=== PATIENT | male | born 1940 | race Caucasian/White ===

== ENCOUNTER → 2023-09-21 09:49 | Outpatient (REF) | payer MEDICARE, OTHER, SELFPAY ==
[2023-09-21 11:56] LABS: % Basophils 0.4 % (0-2); % Eosinophils 2.1 % (0-6); % Immature Granulocytes 0.4 % (0-0.5); % Monocytes 10.9 % (1.7-9.3); % Neutrophils 57.2 % (42.2-75.2); Absolute Eosinophils 0.1 10^3/uL (0-0.7); Absolute Lymphocytes 1.5 10^3/uL (1.2-3.4); Absolute Monocytes 0.6 10^3/uL (0.1-0.6); Hematocrit 40.2 % (39.0-52.0); Hemoglobin 13.5 g/dL (13.0-18.0); Mean Corp Hgb Conc. 33.6 g/dL (33.0-37.0); Mean Corpuscular Hgb 31.8 pg (27.0-31.0); Mean Corpuscular Volume 94.6 fL (80.0-94.0); Mean Platelet Volume 10.5 fL (7.4-10.4); Nucleated Red Blood Cells % 0 % (-); Platelet Count 243 10^3/uL (130-400); Red Blood Cell Count 4.25 10^6/uL (4.70-6.10); Red Cell Dist. Width 13.7 % (11.5-14.5); White Blood Cell Count 5.2 10^3/uL (4.8-10.8)
[2023-09-21 11:58] LABS: ALT (SGPT) 18 U/L (0-50); AST (SGOT) 37 U/L (17-59); Albumin 4.1 g/dl (3.5-5.0); Alkaline Phosphatase 96 U/L (38-126); Blood Urea Nitrogen 17 mg/dl (9-20); Carbon Dioxide 31 mmol/L (22-30); Chloride 104 mmol/L (98-107); Glucose 89 mg/dl (70-99); Potassium 4.2 mmol/L (3.5-5.1); Sodium 139 mmol/L (135-145); Total Bilirubin 0.7 mg/dl (0.2-1.3); Total Protein 6.6 g/dl (6.3-8.2); eGFR > 60.00
== END ==
LOC: HWLAB 09:49
PROVIDERS: ATTENDING PHYSICIAN Psychiatry & Neurology Neurology; FAMILY PHYSICIAN Family Medicine
DX: G20.C Parkinsonism, unspecified (principal)
CPT/HCPCS: 36415; 80053; 85025

== ENCOUNTER → 2024-06-13 10:57 | Outpatient (REF) | payer MEDICARE, OTHER, SELFPAY ==
[2024-06-13 16:11] LABS: % Basophils 0.6 % (0-2); % Immature Granulocytes 0.2 % (0-0.5); % Neutrophils 46.2 % (42.2-75.2); Absolute Eosinophils 0.2 10^3/uL (0-0.7); Absolute Monocytes 0.6 10^3/uL (0.1-0.6); Absolute Neutrophils 2.4 10^3/uL (1.4-6.5); Hematocrit 40.3 % (39.0-52.0); Hemoglobin 13.9 g/dL (13.0-18.0); Mean Corp Hgb Conc. 34.5 g/dL (33.0-37.0); Mean Corpuscular Hgb 31.5 pg (27.0-31.0); Mean Corpuscular Volume 91.4 fL (80.0-94.0); Mean Platelet Volume 11.3 fL (7.4-10.4); Nucleated Red Blood Cells % 0 % (-); Platelet Count 223 10^3/uL (130-400); Red Blood Cell Count 4.41 10^6/uL (4.70-6.10); Red Cell Dist. Width 13.3 % (11.5-14.5); White Blood Cell Count 5.1 10^3/uL (4.8-10.8)
[2024-06-13 16:18] LABS: ALT (SGPT) 14 U/L (0-50); AST (SGOT) 45 U/L (17-59); Albumin 4.6 g/dl (3.5-5.0); Alkaline Phosphatase 69 U/L (38-126); Blood Urea Nitrogen 19 mg/dl (9-20); Calcium 9.3 mg/dl (8.4-10.2); Carbon Dioxide 28 mmol/L (22-30); Chloride 102 mmol/L (98-107); Glucose 94 mg/dl (70-99); HDL Cholesterol 63 mg/dl; LDL Cholesterol, Calculated 66 mg/dl; Potassium 4.5 mmol/L (3.5-5.1); Sodium 143 mmol/L (135-145); Total Bilirubin 0.8 mg/dl (0.2-1.3); Total Cholesterol 145 mg/dl (50-199); Total Protein 7.1 g/dl (6.3-8.2); Triglyceride 81 mg/dl (10-149); Very Low Density Lipoprotein 16 mg/dl (0-30); eGFR > 60.00
== END ==
LOC: HWLAB 10:57
PROVIDERS: ATTENDING PHYSICIAN Family Medicine
DX: N32.81 Overactive bladder (principal); E78.5 Hyperlipidemia, unspecified; H35.30 Unspecified macular degeneration; N40.1 Benign prostatic hyperplasia with lower urinary tract symptoms; G20.B1 Parkinson's disease with dyskinesia, without mention of fluctuations; Z96.651 Presence of right artificial knee joint
CPT/HCPCS: 36415; 80053; 80061; 85025

== ENCOUNTER 2024-11-03 09:53 | Inpatient (IN) | payer MEDICARE, OTHER, SELFPAY ==
[2024-11-03] VITALS (16 sets, daily range): BP systolic 112–150; BP diastolic 48–96; BMI 32.9
[2024-11-03 03:29] LABS: % Basophils 0.5 % (0-2); % Eosinophils 0.6 % (0-6); % Immature Granulocytes 0.2 % (0-0.5); % Lymphocytes 17.6 % (20.5-51.1); % Monocytes 14.2 % (1.7-9.3); % Neutrophils 66.9 % (42.2-75.2); Absolute Lymphocytes 1.1 10^3/uL (1.2-3.4); Absolute Monocytes 0.9 10^3/uL (0.1-0.6); Absolute Neutrophils 4.3 10^3/uL (1.4-6.5); Hematocrit 40.5 % (39.0-52.0); Hemoglobin 13.9 g/dL (13.0-18.0); Mean Corp Hgb Conc. 34.3 g/dL (33.0-37.0); Mean Corpuscular Hgb 31.9 pg (27.0-31.0); Mean Corpuscular Volume 92.9 fL (80.0-94.0); Mean Platelet Volume 11.2 fL (7.4-10.4); Nucleated Red Blood Cells % 0 % (-); Platelet Count 204 10^3/uL (130-400); Red Blood Cell Count 4.36 10^6/uL (4.70-6.10); Red Cell Dist. Width 13.8 % (11.5-14.5); White Blood Cell Count 6.4 10^3/uL (4.8-10.8)
[2024-11-03 03:51] LABS: ALT (SGPT) 37 U/L (0-50); AST (SGOT) 39 U/L (17-59); Albumin 4.4 g/dl (3.5-5.0); Alkaline Phosphatase 119 U/L (38-126); Blood Urea Nitrogen 22 mg/dl (9-20); Calcium 9.4 mg/dl (8.4-10.2); Carbon Dioxide 25 mmol/L (22-30); Chloride 108 mmol/L (98-107); Estimated Creatinine Clearance 69 ml/min; Glucose 120 mg/dl (70-99); Potassium 4.5 mmol/L (3.5-5.1); Sodium 143 mmol/L (135-145); Total Bilirubin 0.6 mg/dl (0.2-1.3); Total Protein 6.8 g/dl (6.3-8.2); Troponin I 0.032 ng/ml; eGFR > 60.00
--- NOTE | 2024-11-03 03:51 | ED.GENMED ---
History of Present Illness
General
Chief Complaint: Weakness
Source: patient, spouse and ambulance crew
Exam Limitations: none
Time Seen by Provider: 11/03/24 03:27
Nursing documentation reviewed up to this point in time: agreed with
History of Present Illness
History of Present Illness:
84-year-old male with a past medical history of hyperlipidemia, BPH, mild dementia, Parkinson's disease who presents to the emergency room from his home at [facility] where he lives with his ; he presents with his via EMS for evaluation
of weakness and multiple falls. Patient's reports that he has had 'decreased stamina' for the past few weeks. Today they were able to go to dinner he seemed generally normal but when they returned from dinner and in the evening he was very
weak and had 3 falls in short order. After the third time calling medics for lift assist they were recommended to go to the hospital to be evaluated. Patient is unsure whether he struck his head but does have abrasion to the left frontal region.
Denies loss of consciousness. He denies any injuries from the falls�denies headache, neck pain, back pain, chest pain, abdominal pain, pain in the extremities. Review of medication list shows that he is not on any blood thinners. says that
he was mildly sweaty when the medics came to pick him up the third time but otherwise she did not notice any additional symptoms. He has not had any cough or URI symptoms. No vomiting or diarrhea. He does wear a diaper for incontinence.
Review of Systems
Review of Systems
All Other Systems: ROS reviewed and negative except as documented in HPI and ROS
Constitutional: Reports fatigue; Denies fever or chills
Respiratory: Denies trouble breathing
Cardiac: Denies chest pain
ABD/GI: Denies abdominal pain, nausea or vomiting
: Denies flank pain
Musculoskeletal: Denies joint pain, edema, neck pain or back pain
Neurological: Reports weakness (Generalized); Denies dizzy, headache or numbness
Phy Exam
Physical Exam
Physical Exam:
General: Awake, alert, oriented x3; no acute distress
Head: Normocephalic, frontal scalp abrasion
Eyes: Conjunctiva normal, EOMI, pupils equal round and reactive to light bilaterally
Throat: Airway intact, handling secretions
Neck: Trachea midline, no cervical spine tenderness
Lungs: Clear to auscultation bilaterally, no wheezing, rales, rhonchi
Heart: Bradycardia with regular rhythm, no murmurs, gallops, or rubs; no chest wall tenderness
Abd: Soft, non distended, nontender
Back: No signs of trauma to the back or flank and no tenderness in the thoracic or lumbar spine
Neuro: Cranial nerves grossly intact, moving all extremities equally without focal motor or sensory deficit
Skin: Warm and dry, no lacerations or abrasion
Extremities: Atraumatic, no reproducible tenderness, reasonable range of motion in all extremities without pain, good pulses in all extremities
Scores
Heart Failure Risk
Heart Failure Risk Score: Not Applicable
Heart Score for Chest Pain Patients
STEMI patient?: Not applicable
Withdrawal Assessment of Alcohol
Withdrawal Assessment Completed?: Not applicable
Course
Orders/Labs/Results
Orders:
Orders
11/03/24 03:04
EKG [Electrocardiogram (*1)] Urgent
Reason for Study: Fatigue / Weakness
11/03/24 03:05
EKG- Treatment ONCE
11/03/24 03:18
Electrocardiogram (*1) Urgent
Reason for Study: Fatigue / Weakness
EKG- Treatment ONCE
11/03/24 03:20
Complete Blood Count/With Diff Urgent
Comprehensive Metabolic Panel Urgent
TSH Reflex To Free T4 Urgent
Troponin I Urgent
11/03/24 03:50
CT Cervical Spine W/o Iv Contr Urgent
Comment:
Reason For Exam: fall with headstrike
CT Head W/o Iv Contrast Urgent
Comment:
Reason For Exam: fall with headstrike
11/03/24 03:57
CR Chest - 2 Views Urgent
Comment:
Reason For Exam: weakness,eval for pna
11/03/24 04:02
COVID-19 Antigen Urgent
Source: Nasal Swab
Urinalysis Reflex To Culture Urgent
Date Specimen was Collected: 11/03/24
Time Specimen was Collected: 03:45
Urine Microscopic Reflex Cult Urgent
Influenza A+B Rapid Molecular Urgent
MARLENE Source: Nasal Swab
Specimen Description:
11/03/24 04:19
Electrocardiogram (*1) Urgent
Reason for Study: Fatigue / Weakness
EKG- Treatment ONCE
11/03/24 04:58
Case Management Consult ONCE
Case Management Consult: Prison Placement
Comment: rehab
Pt Eval And Treat Urgent
Activity Level: With Assistance
11/03/24 Breakfast
Regular
At Your Request: Non-Participating
11/03/24 06:18
Troponin I Urgent
11/03/24 09:18
Troponin I Urgent
Abnormal Lab Results
11/03/24 11/03/24 11/03/24
03:20 04:02 06:18
RBC 4.36 L 10^6/uL
(4.70-6.10)
MCH 31.9 H pg
(27.0-31.0)
MPV 11.2 H fL
(7.4-10.4)
Absolute Lymphs (auto) 1.1 L 10^3/uL
(1.2-3.4)
Absolute Monos (auto) 0.9 H 10^3/uL
(0.1-0.6)
Lymphocytes % 17.6 L %
(20.5-51.1)
Monocytes % 14.2 H %
(1.7-9.3)
Chloride 108 H mmol/L
(98-107)
BUN 22 H mg/dl
(9-20)
Glucose 120 H mg/dl
(70-99)
Troponin I 0.047 H* D ng/ml
Urine Bacteria (Reflex) Few A
(Negative)
Urine Albumin (Reflex) 2+ A
(Neg - Trace)
11/03/24 03:20
11/03/24 03:20
Vital Signs
Initial and Last Documented VS:
Initial Vital Signs
Temp Pulse Resp BP Pulse Ox
37.2 C 52 18 129/66 97
11/03/24 03:06 11/03/24 03:06 11/03/24 03:06 11/03/24 03:06 11/03/24 03:06
Last Documented Vital Signs
Temp Pulse Resp BP Pulse Ox
37.2 C 50 21 138/63 94
11/03/24 03:06 11/03/24 07:30 11/03/24 07:30 11/03/24 07:30 11/03/24 07:30
MDM/Problems Addressed
Differential Diagnosis Includes:
Anemia, infection, dysrhythmia, dehydration, electrolyte derangement, deconditioning related to Parkinson's/dementia
MDM/Problems Addressed:
84-year-old male with history as documented presents with his for evaluation of increasing weakness and multiple falls this evening. Bradycardic but otherwise normal vitals. Physical exam as above. Place an IV check labs including a CBC and
a CMP; check urinalysis. Swab for COVID and flu. Check chest x-ray for infectious workup. Check an EKG. did describe some diaphoresis will send a troponin. Monitor on telemetry reassess after the above.
Patient's EKG concerning for AV block. Add thyroid studies. He is not on beta-blockers. Possible bradycardia as cause for his increased weakness and falls. Continue to monitor closely on telemetry.
Labs reviewed: CBC unremarkable, CMP no clinically significant abnormalities. Troponin negative. Urinalysis no infection. Chest x-ray reviewed by me shows no acute disease. Patient is negative for COVID but influenza swab was positive which
likely accounts for his increased weakness today. Check repeat troponin for completeness after episode of diaphoresis today. Serial EKGs. Reassess.
Discussed EKG with cardiology�consistent with Evelina type I, can be followed outpatient.
I had a long discussion with patient and . At this point no clear indication for hospital admission with labs and vital signs, exam all relatively reassuring. He will need outpatient cardiology follow-up as above. Suspect his weakness is from
influenza. He is very unsteady on his feet here had difficulty walking even with a walker here. Spoke to patient and and they would feel more comfortable with him going to rehab rather than directly home to the apartment. Will monitor here
in the emergency room pending physical therapy evaluation and case management consultation for placement in rehab.
Repeat troponin reviewed it was slightly increased from prior but marginally so�very low clinical suspicion for ACS. He has no chest pain and did not have any chest pain. I do suspect influenza as cause for weakness. I did discuss with cardiology;
will check a third troponin�if flat will rule out ACS. Will still work towards placement.
Discussed with cardiology again on reassessment of EKG concern for 2-1 AV block and in context of uptrending troponin will plan to admit to hospitalist service. Cardiology to consult. Case discussed with hospitalist.
Chronic conditions affecting care:
Parkinson's
*Radiology
Radiology exam reviewed: preliminary read by ED provider and radiology read reviewed
*Pulse Oximetry
Patient hypoxic: no
*EKG
Interpreted by ED Provider?: Yes
Heart Rate: 47
Rate: bradycardiac
Rhythm: sinus
[place]: left axis deviation
Interval: second degree evelina Luther
QRS Pattern: other (LAFB)
Ischemia: non-specific ST changes
*Critical Care Note
Total Time (30-74mins, 75-104mins- exclusive of procedures): Not Applicable
Data Reviewed
Review of Other/Old Records Reveals: Labs and Records
Source: patient, spouse and ambulance crew
Patient Management
Discussion with other providers: Nailhead Setter (Discussed with cardiology)
ED Attending Note
-
Portions of this chart may have been created with voice recognition software.� Occasional wrong word or��sound alike� substitutions may have occurred due to the inherent limitations of voice recognition software.
Discharge Plan
Departure
Patient Disposition: Acute Rehab Facility
Date of Disposition: 11/03/24
Time of Disposition: 06:59
Patient with high blood pressure during this ER visit?: No
Discharge Problem:
Influenza, Mobitz (type) I (Wenckebach's) atrioventricular block
Instructions: Flu in adults - Discharge instructions
Prescriptions:
No Action
pyridoxine (vitamin B6) 100 mg Tablet
100 mg PO DAILY
folic acid 0.8 mg Capsule
0.8 mg PO HS
mecobalamin (vitamin B12) 5,000 mcg Tablet,Disintegrating
2,500 mcg PO QPM
ascorbic acid (vitamin C) [Vitamin C] 1,000 mg Tablet
1,000 mg PO DAILY
atorvastatin 20 mg Tablet
20 mg PO HS
multivitamin Tablet
1 tab PO DAILY
finasteride 5 mg Tablet
5 mg PO QPM
omega 9-yej-fzf-fish oil [Fish Oil] 1,000 mg (120 mg-180 mg) Capsule
2 cap PO DAILY
PreserVision AREDS-2 250-90-40-1 mg Capsule
1 tab PO BID
donepezil 10 mg Tablet
10 mg PO HS
carbidopa-levodopa 25-100 mg Tablet
3 tab PO TID
acetaminophen [Acetaminophen Extra Strength] 500 mg tablet
1,000 mg PO Q6H PRN (Reason: pain)
Rx Instructions:
DO NOT exceed >4000 mg daily.
docusate sodium 100 mg capsule
100 mg PO BID PRN (Reason: constipation)
Referrals:
Jay Jay Fulton MD [Active] - Call in 1-3 days for appt (Cardiology)
Interventions
Interventions:
*Risk Screen - Suicide Last Done: 11/03/24 03:06
*General Assessment Last Done: 11/03/24 03:06
*Neglect/Abuse Screening Last Done: 11/03/24 03:06
*ED- Fall Risk Assessment Last Done: 11/03/24 03:06
*ED COVID-19 Vaccine History Last Done: 11/03/24 03:06
ED- Cardiac Assessment Last Done: 11/03/24 07:21
ED- Neurological Assessment Last Done: 11/03/24 07:21
ED- Pulmonary Assessment Last Done: 11/03/24 07:21
Discharge Date and Time
Print Language: KYRGYZ
[2024-11-03 04:11] LABS: Urine Albumin 2+ (Neg - Trace); Urine Bilirubin Negative (Negative); Urine Character Clear (Clear); Urine Color Yellow; Urine Glucose Negative (Negative); Urine Ketone Negative (Negative); Urine Leukocyte Negative (Negative); Urine Nitrite Negative (Negative); Urine Occult Blood Negative (Negative); Urine Specific Gravity 1.015 (<1.030); Urine Urobilinogen Negative (Neg - 1+)
[2024-11-03 04:19] LABS: COVID-19 Antigen Negative (Negative)
[2024-11-03 04:37] LABS: Urine Bacteria Few (Negative); Urine Mucus Few; Urine Red Blood Cell 0-2 /HPF (0-2); Urine White Cell 0-2 /HPF (0-5)
[2024-11-03 05:15] LABS: TSH Reflex To Free T4 3.49 uIU/ml (0.47-4.68)
[2024-11-03 06:59] LABS: Troponin I 0.047 ng/ml
--- NOTE | 2024-11-03 08:01 | CON.CAR ---
Addendum entered and electronically signed by Cr Coello MD 11/03/24 14:38:
I saw and examined the patient.
The BUSHER HELPER's note was reviewed and I agree with the note.
Comment: 84 y/o male with dyslipidemia, BPH, dementia, and Parkinson's who is here for weakness and falls. He is flu A positive. We are consulted since he is seen to have heart block (2nd degree Mobitz 1 and 2:1 conduction).
Given history of falls and advanced HB will need PPM; we will discuss timing.
- tx of flu per primary
Original Note:
Consultation
Consultation Request
Date/Time Consultation Requested: 11/03/24745
Date/Time Consultation Performed: 11/03/24800
Requesting Provider: Dr. Woods
Performing Provider: Phyllis CARLSON for Dr. Coello
Reason for Consultation: heart block
Medical History
-
Chief Complaint: weakness, falls
History of Present Illness:
84 y/o male with dyslipidemia, BPH, dementia, and Parkinson's who is here for weakness and falls. He is flu A positive. We are consulted since he is seen to have heart block (2nd degree Mobitz 1 and 2:1 conduction). He is in no distress at the time
of my assessment and BP is stable.
Past Medical History
Past Medical History: Hypercholesterolemia and Other (as above)
Social History
Personal:
Living: Other (Kell's choice)
Family History
Family History: Reviewed & Not Pertinent
Allergies / Home Medications
Allergy/AdvReac Type Severity Reaction Status Date / Time
cephalexin [From Keflex] Allergy Vomiting Verified 11/03/24 03:05
�Medication �Instructions �Recorded �Confirmed �Type
ascorbic acid (vitamin C) 1,000 mg 1,000 mg PO DAILY Supplement 07/24/22 11/03/24 History
tablet (Vitamin C)
atorvastatin 20 mg tablet 20 mg PO HS High cholesterol 07/24/22 11/03/24 History
finasteride 5 mg tablet 5 mg PO QPM Urinary issue 07/24/22 11/03/24 History
multivitamin 1 tab PO DAILY Supplement 07/24/22 11/03/24 History
omega 5-fel-ydo-fish oil 1,000 mg 2 cap PO DAILY Supplement 07/24/22 11/03/24 History
(120 mg-180 mg) capsule (Fish Oil)
vit C 250 mg-vit E 90 mg-zinc 40 1 tab PO BID Supplement 07/24/22 11/03/24 History
mg-copper 1 [id number]
capsule (PreserVision AREDS-2)
folic acid 0.8 mg capsule 0.8 mg PO HS Supplement 07/30/22 11/03/24 History
mecobalamin (vitamin B12) 5,000 2,500 mcg PO QPM Supplement 07/30/22 11/03/24 History
mcg disintegrating tablet
pyridoxine (vitamin B6) 100 mg 100 mg PO DAILY Supplement 07/30/22 11/03/24 History
tablet
acetaminophen 500 mg tablet 1,000 mg PO Q6H PRN pain 11/03/24 11/03/24 History
(Acetaminophen Extra Strength)
carbidopa 25 mg-levodopa 100 mg 3 tab PO TID 11/03/24 11/03/24 History
tablet
docusate sodium 100 mg capsule 100 mg PO BID PRN constipation 11/03/24 11/03/24 History
donepezil 10 mg tablet 10 mg PO HS 11/03/24 11/03/24 History
Review of Systems
-
History Source: Patient and Other (and chart)
All other systems: Negative unless noted
Constitutional: Other (weakness, falls)
Cardiac: Diaphoresis
Physical Exam
Vital Signs
Temp Pulse Resp BP Pulse Ox
99.0 F 50 21 138/63 94
11/03/24 03:06 11/03/24 07:30 11/03/24 07:30 11/03/24 07:30 11/03/24 07:30
Lab Results
11/03/24 03:20
11/03/24 03:20
Troponin I 0.047 ng/ml H* D 11/03/24 06:18
Physical Exam
General: Well Developed, Well Nourished, No Apparent Distress and Other (diaphoretic)
HEENT: Normocephalic and Anicteric
Respiratory: Clear and Non Labored Respirations
Cardiac: Irregular Rhythm and Murmur
Musculoskeletal: No Edema
Skin: Warm and Dry
Neuro: AO x 3
Psych: Calm
Impression / Plan
-
Cardiac conduction disease, 2nd degree heart block:
-both Mobitz 1 and 2:1 conduction seen
-TSH WNL. He is not on BB or CCB.
-cardiac conduction disease is severe in that he will require pacemaker.
-Pacemaker will be recommended as above- I discussed with patient. We will also need to speak with on this since patient with some level of dementia. He is flu A positive, so need to discuss appropriate timing of this with EP. His BP is stable.
-denies dizziness, light-headedness, or syncope. Has had weakness, but does have flu A as well.
-will obtain echo
Influenza A:
-management per primary team
Parkinson's disease:
-on medical therapy
Acute, non-ischemic myocardial injury:
-in setting of flu and heart block
-denies CP or SOB
-trend to peak
-echo as above
Data Reviewed
-
EKG: Tracing Personally Visualized and interpreted (SR with second degree AVB, 2:1 conduction)
Radiology: Report Reviewed by me (CXR: No acute cardiopulmonary abnormality.)
Medical Tests (Nuc Med, Echo etc): Report Reviewed by me (Echo 10/03/22: Normal left ventricular size, wall thickness and systolic function. LV ejection fraction is 65-70% . Mild aortic stenosis and mild aortic regurgitation. Mild mitral
regurgitation.)
Labs: Labs Reviewed by me
[2024-11-03 09:57] LABS: Troponin I 0.052 ng/ml
[2024-11-03] MEDS: SINEMET 25-100 3 TABLET PO ×3 (10:00→22:25)
--- NOTE | 2024-11-03 10:01 | HPS.HSE ---
Addendum entered and electronically signed by Annette Owens MD 11/03/24 14:01:
I personally performed a history and physical exam of the patient and discussed management with the resident. I reviewed the resident's note and agree with the documented findings and plan of care HPI/CC.
GENERAL: well developed, well nourished, male in no apparent distress
HEENT: NC/AT---no O2 requirments
HEART:irreg irreg, +S1, +S2, bradycardia--CARLOS A
LUNGS : clear to auscultation bilaterally
ABDOM: soft, nontender, nondistended, + bowel sounds
EXT: no cyanosis, clubbing, or edema
NEUROLOGIC: apparent signs of Parkinson's
Recent weakness and fall increased falls--likely cardiac conduction disease--EKGs reviewed, have both Mobitz type I and type II secondary heart block--admit to IVU--apprec cards--will need pacer--PT/OT--imaging studies without acute findings--ECHO
with preserved EF and mild aortic stenosis/regurg
Influenza A--no URI symptoms so must presume acute--would treat with tamiflu
Parkinson's disease--Continue home regimen of Sinemet
Elevated troponins--likely nonischemic myocardial injury
Mild dementia--Continue donepezil
Alcohol use disorder--Patient states that he drinks every day full cup of vodka--Continue MSAS protocol--no signs of withdrawal symptoms yet--B12, folate, thiamine replenishment
DVT proph--Lovenox
code status --Full code
Original Note:
Family Physician
-
Family Physician: NOT KNOW UNKNOWN - PT DOES
Chief Complaint
-
Recent increased falls, weakness
History of Present Illness
84-year-old male with a past medical history of hyperlipidemia, BPH, mild dementia, and Parkinson's disease presented to the emergency room from his home in [facility] where he lives with his due to having recent increased weakness and
falls. Increased weakness has been going on for the past few weeks however he had increased consecutive falls after dinner last night. He fell around 3 times in succession and call for medics to help lift him up at the third time. Afterwards he
was recommended to go to the hospital to be evaluated. Patient was not sure if he hit his head but he does have an abrasion on the left frontal region. He did not have any symptoms like chest pain, shortness of breath, cough, fever, chills,
dizziness, or heart palpitations. On presentation to the ED patient's did say that he had been mildly sweaty but otherwise no additional symptoms. Patient has not had any GI symptoms including no nausea, no vomiting and, no diarrhea. As per
the patient, he has been feeling weak however he has no other issues or complaints.
Medical History
Past Medical History
Past Medical History: Reports Dementia (Mild), Hypercholesterolemia and Other
Additional Past Medical History:
BPH
Parkinson's disease
Past Surgical History: Reports None
Social History
Tobacco: Non-smoker
Alcohol: Daily (Cup of vodka every day)
Drug: None
Personal:
Living: Assisted Living (With )
Family History
Family History: Not pertinent
Allergies / Home Medications
Allergies reflects when Allergies were last updated in [facility].
Home Medications with original date entered in [facility]
Allergy/Medication List:
Allergies
Allergy/AdvReac Type Severity Reaction Status Date / Time
cephalexin [From Keflex] Allergy Vomiting Verified 11/03/24 03:05
Home Medications
ascorbic acid (vitamin C) 1,000 mg tablet (Vitamin C) 1,000 mg PO DAILY Supplement 07/24/22
atorvastatin 20 mg tablet 20 mg PO DAILY High cholesterol 07/24/22
finasteride 5 mg tablet 5 mg PO DAILY Urinary issue 07/24/22
vit C 250 mg-vit E 90 mg-zinc 40 mg-copper 1 [id number] capsule (PreserVision AREDS-2) 1 tab PO BID Supplement 07/24/22
pyridoxine (vitamin B6) 100 mg tablet 100 mg PO DAILY Supplement 07/30/22
carbidopa 25 mg-levodopa 100 mg tablet 3 tab PO TID 11/03/24
cyanocobalamin (vitamin B-12) 500 mcg tablet 1,000 mcg PO DAILY 11/03/24
docosahexaenoic acid (dha)-epa 120 mg-180 mg capsule (Fish Oil) 2 cap PO DAILY 11/03/24
donepezil 10 mg tablet 10 mg PO HS 11/03/24
folic acid 1 mg tablet 1 mg PO DAILY 11/03/24
memantine 10 mg tablet 10 mg PO DAILY 11/03/24
therapeutic multivitamin 1 tab PO DAILY 11/03/24
Review of Systems
-
History Source: Patient
A 12 point ROS was completed and negative except as noted: Yes
Constitutional: Denies Fever
EENT: Reports No Symptoms
Respiratory: Denies Cough or Trouble Breathing
Cardiac: Denies Chest Pain, Diaphoresis or Palpitations
Abdomen/GI: Denies Abdominal Pain, Nausea, Vomiting or Diarrhea
: Reports No Symptoms
Musculoskeletal: Reports No Symptoms
Skin: Reports No Symptoms
Neurological: Reports Weakness
Endocrine: Reports No Symptoms
Psych: Reports No Symptoms
Physical Exam
Vital Signs
Vital Signs
Temp Pulse Resp BP Pulse Ox
99.0 F 48 19 118/51 95
11/03/24 03:06 11/03/24 08:30 11/03/24 08:30 11/03/24 08:30 11/03/24 08:00
Physical Exam
General: Well Developed, Well Nourished, No Apparent Distress, Comfortable and Conversant
HEENT: NormoCephalic, Anicteric and Atraumatic
Respiratory: Clear and Non Labored Respirations
Cardiac: S1/S2, Irregular Rhythm and Bradycardia
GI: Soft, Non Tender and Non Distended
Musculoskeletal: No Clubbing, No Cyanosis and No Edema
Skin: Warm and Dry
Neuro: Awake, Alert, Oriented and AO x 3
Psych: Calm and Apparent Dementia (Mild)
Laboratory Results
-
11/03/24 03:20
11/03/24 03:20
Laboratory Results
Total Bilirubin 0.6 mg/dl (0.2-1.3) 11/03/24 03:20
AST 39 U/L (17-59) 11/03/24 03:20
ALT 37 U/L (0-50) 11/03/24 03:20
Alkaline Phosphatase 119 U/L (38-126) 11/03/24 03:20
Troponin I 0.052 ng/ml H* 11/03/24 09:23
Data Reviewed
-
CT Scan: Report Reviewed by me, Discussed with Physician, Discussed with Nurse and Discussed with Patient
Medical Tests (Nuc Med, Echo, EKG etc): Report Reviewed by me, Discussed with Physician, Discussed with Nurse and Discussed with Patient
Lab Data: Labs Reviewed by me, Discussed with Physician, Discussed with Nurse and Discussed with Patient
Impression/Plan
-
Assessment:
84-year-old male with a past medical history of hyperlipidemia, BPH, mild dementia, Parkinson disease presented to the [facility] ED on 10/30/2024 from his home at [facility] where he lives with his due to recent history of weakness
and multiple falls. Patient had this weakness for many weeks now and today after dinner he had 3 consecutive falls. He called medics for help and was recommended to go to the hospital for evaluation. In the ED he was found to have secondary heart
block, both Mobitz 1 and 2 were seen. He also used had elevated troponin, and tested positive for influenza. Cardiology was consulted. Patient was admitted to the IVU for further management.
Chest X-Ray (11/03/2024):
No acute cardiopulmonary abnormality.
Head CT w/o IV contrast (11/03/2024):
No acute intracranial abnormality noted.
Layering secretions within the left maxillary sinus which can be seen with sinusitis.
Preliminary report provided by [facility] at 0440.
CT Cervical Spine W/o Iv Contr (11/03/2024):
No acute osseous abnormality.
Multilevel degenerative changes most pronounced at C4-C5 and C5-C6.
EKG (11/03/2024 03:04 AM):
SINUS RHYTHM second degree AV block WITH 2:1 A-V CONDUCTION WITH
AND WITH OCCASIONAL PREMATURE VENTRICULAR COMPLEXES
LEFT ANTERIOR FASCICULAR BLOCK
ABNORMAL ECG
WHEN COMPARED WITH ECG OF 30-JUL-2022 08:44,
SINUS RHYTHM IS NOW WITH secnod degree AV blcok WITH 2:1 A-V CONDUCTION
EKG (11/03/2024 03:18 AM):
SINUS RHYTHM WITH 2ND DEGREE A-V BLOCK (MOBITZ I)
LEFT ANTERIOR FASCICULAR BLOCK
CANNOT RULE OUT ANTERIOR INFARCT , AGE UNDETERMINED
ABNORMAL ECG
WHEN COMPARED WITH ECG OF 03-NOV-2024 03:09,
PREMATURE VENTRICULAR COMPLEXES ARE NO LONGER PRESENT
PREMATURE SUPRAVENTRICULAR COMPLEXES ARE NO LONGER PRESENT
EKG (11/03/2024 04:19 AM):
SINUS RHYTHM WITH 2ND DEGREE A-V BLOCK (MOBITZ I)
LEFT ANTERIOR FASCICULAR BLOCK
SEPTAL INFARCT (CITED ON OR BEFORE 03-NOV-2024)
ABNORMAL ECG
WHEN COMPARED WITH ECG OF 03-NOV-2024 03:30,
NO SIGNIFICANT CHANGE WAS FOUND
Plan:
# Recent weakness and fall increased falls secondary to cardiac conduction disease
-EKGs as above, found to have both Mobitz type I and type II secondary heart block
-Cardiology consulted, input appreciated
-Patient admitted to IVU for further management and telemetry
-CT cervical spine and head as above, no acute findings on both
-Pending echo results
# Influenza A
-Patient tested positive for flu
-May have been causing his symptoms including weakness and recent falls
-No respiratory symptoms such as shortness of breath, cough, or any fever/chills
-No reported GI symptoms such as nausea, vomiting, diarrhea
-Chest x-ray as above, no acute findings
-Will give Tamiflu 75 twice daily for 5 days
-Supportive therapy as needed
# Parkinson's disease
-Continue home regimen of Sinemet
# Elevated troponins
-Trending troponins as they were elevated, most likely due to nonischemic disease
-Recommended pacemaker placement, await further discussion with
# Mild dementia
-Continue donepezil
# Alcohol use disorder
-Patient states that he drinks every day full cup of vodka
-Continue MSAS protocol
-B12, folate, thiamine replenishment
-Watch for any withdrawal symptoms
DVT prophylaxis: Lovenox
Full code
[2024-11-03] MEDS: VITAMIN B1 100 MG PO (11:48)
[2024-11-03] MEDS: TAMIFLU 75 MG PO ×2 (11:48→20:00)
[2024-11-03] MEDS: FOLTX 1 TABLET PO (12:24)
[2024-11-03 13:41] LABS: Troponin I 0.045 ng/ml
--- NOTE | 2024-11-03 13:45 | EDRN ---
Pt has parkinsons.... so his tremor is at its baseline. Pt has dementia so his orientation status is off
--- NOTE | 2024-11-03 13:49 | EDRN ---
Provider notified of critical value troponin level
[2024-11-03] MEDS: LOVENOX 40 MG SC (17:06)
[2024-11-03] MEDS: OCUVITE SOFTGEL 1 CAP PO (20:00)
[2024-11-03] MEDS: ARICEPT 10 MG PO (22:25)
--- NOTE | 2024-11-03 23:24 | PTCARENOTE ---
Received patient at change of shift. Pt with a 2nd degree heart block type 2 on the monitor, HR in the 50s. Pt placed on 2L as per CT surgery PA. Droplet precautions in place. Pt oriented to self and time, disoriented to place and situation. Bed
alarm on. No complaints from pt at this time, call miller within reach.
[2024-11-04] VITALS (11 sets, daily range): BP systolic 115–149; BP diastolic 63–85; PULSE 65; O2SAT 95
[2024-11-04 02:20] LABS: Hematocrit 38.4 % (39.0-52.0); Hemoglobin 13.1 g/dL (13.0-18.0); Mean Corp Hgb Conc. 34.1 g/dL (33.0-37.0); Mean Corpuscular Hgb 32.1 pg (27.0-31.0); Mean Corpuscular Volume 94.1 fL (80.0-94.0); Mean Platelet Volume 11.2 fL (7.4-10.4); Platelet Count 182 10^3/uL (130-400); Red Blood Cell Count 4.08 10^6/uL (4.70-6.10); White Blood Cell Count 5.1 10^3/uL (4.8-10.8)
[2024-11-04 03:01] LABS: Blood Urea Nitrogen 19 mg/dl (9-20); Calcium 9.2 mg/dl (8.4-10.2); Carbon Dioxide 27 mmol/L (22-30); Chloride 107 mmol/L (98-107); Estimated Creatinine Clearance 86 ml/min; Glucose 112 mg/dl (70-99); Potassium 4.1 mmol/L (3.5-5.1); Sodium 143 mmol/L (135-145); eGFR > 60.00
--- NOTE | 2024-11-04 07:55 | W.PN.HOSP.TC ---
Addendum entered and electronically signed by Annette Owens MD 11/04/24 14:10:
I saw and evaluated the patient independently. I reviewed the resident�s note and agree with findings and plan as documented by Dr. Serna.
GENERAL: well developed, well nourished, male in no apparent distress
HEENT: NC/AT---no O2 requirments
HEART:irreg irreg, +S1, +S2, bradycardia--CARLOS A
LUNGS : clear to auscultation bilaterally
ABDOM: soft, nontender, nondistended, + bowel sounds
EXT: no cyanosis, clubbing, or edema
NEUROLOGIC: apparent signs of Parkinson's
Recent weakness and fall increased falls--likely cardiac conduction disease--EKGs reviewed, have both Mobitz type I and type II secondary heart block--apprec cards--s/p pacer--PT/OT--imaging studies without acute findings--ECHO with preserved EF and
mild aortic stenosis/regurg
Influenza A--no URI symptoms so must presume acute--would treat with tamiflu
Parkinson's disease--Continue home regimen of Sinemet
Elevated troponins--likely nonischemic myocardial injury
Mild dementia--Continue donepezil
Alcohol use disorder--Patient states that he drinks every day full cup of vodka--Continue MSAS protocol--no signs of withdrawal symptoms yet--B12, folate, thiamine replenishment
DVT proph--Lovenox
code status --Full code
Original Note:
Today's Communication/Plan
-
Patient to get pacemaker today for his secondary degree heart block. Continue supportive therapy
Assessment / Plan
Assessment / Plan
Assessment:
84-year-old male with a past medical history of hyperlipidemia, BPH, mild dementia, Parkinson disease presented to the [facility] ED on 10/30/2024 from his home at [facility] where he lives with his due to recent history of weakness
and multiple falls. Patient had this weakness for many weeks now and today after dinner he had 3 consecutive falls. He called medics for help and was recommended to go to the hospital for evaluation. In the ED he was found to have secondary heart
block, both Mobitz 1 and 2 were seen. He also used had elevated troponin, and tested positive for influenza. Cardiology was consulted. Patient was admitted to the IVU for further management.
Chest X-Ray (11/03/2024):
No acute cardiopulmonary abnormality.
Head CT w/o IV contrast (11/03/2024):
No acute intracranial abnormality noted.
Layering secretions within the left maxillary sinus which can be seen with sinusitis.
Preliminary report provided by [facility] at 0440.
CT Cervical Spine W/o Iv Contr (11/03/2024):
No acute osseous abnormality.
Multilevel degenerative changes most pronounced at C4-C5 and C5-C6.
EKG (11/03/2024 03:04 AM):
SINUS RHYTHM second degree AV block WITH 2:1 A-V CONDUCTION WITH
AND WITH OCCASIONAL PREMATURE VENTRICULAR COMPLEXES
LEFT ANTERIOR FASCICULAR BLOCK
ABNORMAL ECG
WHEN COMPARED WITH ECG OF 30-JUL-2022 08:44,
SINUS RHYTHM IS NOW WITH secnod degree AV blcok WITH 2:1 A-V CONDUCTION
EKG (11/03/2024 03:18 AM):
SINUS RHYTHM WITH 2ND DEGREE A-V BLOCK (MOBITZ I)
LEFT ANTERIOR FASCICULAR BLOCK
CANNOT RULE OUT ANTERIOR INFARCT , AGE UNDETERMINED
ABNORMAL ECG
WHEN COMPARED WITH ECG OF 03-NOV-2024 03:09,
PREMATURE VENTRICULAR COMPLEXES ARE NO LONGER PRESENT
PREMATURE SUPRAVENTRICULAR COMPLEXES ARE NO LONGER PRESENT
EKG (11/03/2024 04:19 AM):
SINUS RHYTHM WITH 2ND DEGREE A-V BLOCK (MOBITZ I)
LEFT ANTERIOR FASCICULAR BLOCK
SEPTAL INFARCT (CITED ON OR BEFORE 03-NOV-2024)
ABNORMAL ECG
WHEN COMPARED WITH ECG OF 03-NOV-2024 03:30,
NO SIGNIFICANT CHANGE WAS FOUND
Echocardiogram (11/03/2024):
Normal biventricular size and systolic function without regional wall motion
abnormality. Estimated LVEF 55%.
Mild aortic stenosis.
Mild aortic regurgitation.
Compared to 10/03/22: high grade AV block is present.
Plan:
# Recent weakness and fall increased falls secondary to cardiac conduction disease
-EKGs as above, found to have both Mobitz type I and type II secondary heart block
-Cardiology consulted, input appreciated
-Patient admitted to IVU for further management and telemetry
-CT cervical spine and head as above, no acute findings on both
-Echo results as above
-Patient scheduled for pacemaker placement today, n.p.o. since midnight
# Influenza A
-Patient tested positive for flu
-May have been causing his symptoms including weakness and recent falls
-Has a minor cough now
-No reported GI symptoms such as nausea, vomiting, diarrhea
-Chest x-ray as above, no acute findings
-Will give Tamiflu 75 twice daily for 5 days
-Supportive therapy as needed
# Parkinson's disease
-Continue home regimen of Sinemet
# Elevated troponins
-Peaked, most likely due to nonischemic disease
-No longer trending
# Mild dementia
-Continue donepezil
# Alcohol use disorder
-Patient states that he drinks every day full cup of vodka
-MSAS score of 1
-B12, folate, thiamine replenishment
-Watch for any withdrawal symptoms
DVT prophylaxis: Lovenox
Full code
Anticipated Discharge: 24 - 48 hours
Subjective/Interval History
-
Date of Service: November 04, 2024
Patient says that he has been feeling well, just has occasional cough. Has been n.p.o. since midnight for pacemaker placement. As per nurse, was placed on supplemental oxygen due to severe bradycardia bringing his heart rate down to around 30-40s.
Currently around 60-70s on examination. No other acute complaints today.
Objective Data
-
Labs:
Laboratory Results
11/04/24
02:10
WBC 5.1
Hgb 13.1
Hct 38.4 L
Plt Count 182
Sodium 143
Potassium 4.1
Chloride 107
Carbon Dioxide 27
BUN 19
Creatinine 0.8
Glucose 112 H
Calcium 9.2
Vital Signs:
Vital Signs
Temp Pulse Resp BP Pulse Ox
98.7 F 67 18 145/96 99
11/04/24 07:20 11/03/24 23:00 11/04/24 07:20 11/03/24 22:22 11/04/24 07:20
Review of Systems
-
History Source: Patient
Constitutional: Denies Fever, Fatigue or Chills
EENT: Reports No Symptoms Reported
Respiratory: Reports Cough; Denies Trouble Breathing or Wheezing
Cardiac: Denies Chest Pain or Palpitations
Abdomen/GI: Denies Abdominal Pain, Nausea or Vomiting
Musculoskeletal: Reports No Symptoms
Neuro: Reports No Symptoms
Physical Exam
-
General: Well Developed, Well Nourished, No Apparent Distress, Comfortable and Conversant
HEENT: Normocephalic and Atraumatic
Respiratory: Clear to Auscultation and Non Labored Respirations
Cardiac: S1/S2, Irregular Rhythm and Bradycardic
GI: Soft, Nontender and Nondistended
Musculoskeletal: No Clubbing, No Cyanosis and No Edema
Skin: Warm
Neuro: Awake, Alert, Oriented and AO x 3
Psych: Calm and Other (Tremors in left hand, signs of Parkinson's)
Data Reviewed
-
Medical Tests (Nuc Med, Echo etc): Report Reviewed by me, Discussed with Physician, Discussed with Nurse and Discussed with Patient
Labs: Labs Reviewed by me, Discussed with Physician, Discussed with Nurse and Discussed with Patient
[2024-11-04] MEDS: TAMIFLU 75 MG PO ×2 (08:04→20:16)
[2024-11-04] MEDS: VITAMIN B-6 100 MG PO (08:04)
[2024-11-04] MEDS: OCUVITE SOFTGEL 1 CAP PO ×2 (08:04→20:16)
[2024-11-04] MEDS: SINEMET 25-100 3 TABLET PO ×3 (08:04→22:51)
[2024-11-04] MEDS: VITAMIN B1 100 MG PO (08:04)
[2024-11-04] MEDS: LIPITOR 20 MG PO (08:04)
[2024-11-04] MEDS: PROSCAR 5 MG PO (08:04)
[2024-11-04] MEDS: NAMENDA 10 MG PO (08:04)
[2024-11-04] MEDS: THERAGRAN 1 TABLET PO (08:05)
[2024-11-04] MEDS: FOLTX 1 TABLET PO (08:05)
--- NOTE | 2024-11-04 08:40 | PTCARENOTE ---
Assumed care of pt from public welfare worker RN. AAOx2-3. Forgetful. Pt knows he is in hospital; however, unsure of which hospital. Continues in 2nd degree HB type II on tele, HRs 40s-50s. Pt remains NPO for PPM placement today. Bed alarm in place. Pt
resting in bed, call miller in reach. Assessment documented.
--- NOTE | 2024-11-04 12:25 | PTCARENOTE ---
Pt received s/p PPM placement. L CW Aquacel CDI. L arm immobilizer in place. Pt V-paced on scheduling coordinator, HRs 60s. EKG obtained. Pt resting in bed, call miller in reach. at bedside.
--- NOTE | 2024-11-04 16:16 | CM ---
spoke to pt and in room. pt has dementia, answered. pt lives at [facility] in indep apt/ no steps to enter. he was prev indep, has hx falling which she says they feel is related to needing a pacemaker. feels that pt will be indep at
dc and denies any dc planning needs. pt has a cane and a walker at home to use if needed. plan i sfor dc to home with when medically stable.
[2024-11-04] MEDS: ANCEF 5 IV (17:16)
[2024-11-04] MEDS: LOVENOX 40 MG SC (17:16)
--- NOTE | 2024-11-04 17:25 | ITS.CL.PACE ---
Fish Boning Machine Feeder - Pacemaker Implant
Pacemaker Implant
Procedure Report:
Date of Procedure: November 04, 2024.
Procedure: Pacemaker Implantation.�Left upper extremity venogram.
Indication: The pacemaker is for the treatment of nonreversible symptomatic bradycardia due to second degree atrioventricular block.
Performing physician: Ranjan Peña MD, [facility].
Implants:�
Pulse Generator: Medtronic; Model# [id number]; Serial# [id number].
RV Lead: Medtronic; Model# 5076-52cm; Serial# [id number].
RV Lead: Medtronic; Model# 3830-69cm; Serial# [id number].
Technique: A time out was performed. A 10 mL upper extremity venogram demonstrated patent left axillary, cephalic, and subclavian veins. The procedure site was identified. The patient was anesthetized by the anesthesia service. Preoperative
cefazolin was administered. The patient was prepped and draped in the usual fashion. Local anesthetic was applied to the left prepectoral subcutaneous tissue. A 3 inch incision was made along the left deltopectoral groove. Dissection was carried to
the fascia. The left cephalic vein was easily isolated and proximal and distal control with 2-0 Vicryl suture. Using a micropuncture needle to access the cephalic vein under direct visualization a wire was advanced into the central circulation. A 7
Fr introducer was placed to allow two 0.35 J wires to be advanced. The leads were introduced with hemostatic peel away introducer sheaths.�The RV lead was placed using utilizing the AdmitSee His delivery catheter ([id number]) that was advanced to the
left bundle area as confirmed by fluoroscopy in the GUINEAN and CUETO projections. The lead tip was advanced. PVC morphology was reviewed. When a satisfactory location was identified (W pattern observed) the lead was screwed into position with serial
turns. Septal engagement was confirmed with gentle torque applied to the guide sheath. After each series of turns (2-3) unipolar sensed morphology and impedance, and paced morphology of V1 was analyzed. The lead was further advanced until
satisfactory morphology and electrical characteristics were confirmed. The RV lead was placed in the third location evaluated. The long guiding sheath was cut and removed from the RV without change in lead position, impedance, sensing, or
capture.�The ventricular lead was secured to the pectoralis muscle and fascia with two 0-silk sutures. The atrial lead was placed in the right atrial appendage. 8 volt pacing from each lead did not capture the diaphragm. The atrial leads was secured
to the pectoralis muscle and fascia. A subcutaneous pocket was created with Bovie cautery. Hemostasis was excellent. The leads were appropriately attached to the device. The pocket was irrigated with antibiotic solution. The device and leads were
placed in the pocket. The incision was closed in three layers with absorbable suture. Steri-strips and a silver impregnated dressing were placed. Estimated blood loss was less than 10 ml.� There were no complications. Fluoroscopy time 9.9 minutes
and DAP 10.6 GyCM2.� The device was then interrogated after skin closure.
Lead Analysis:
RA lead: P: 3 mV; Threshold: 0.75 V @ 0.4 ms; Impedance: 513 ohms.
RV lead (bipolar): R: 6 mV; Threshold: 1 V @ 0.4 ms; Impedance: 570 ohms.
Paced QRS characteristics: V1 has Qr morphology and measures 110 ms in duration, LVAT (stim to peak V5/V6) is 92 ms, and R peak V1 to R peak V6 is 31 ms.
Final Programming: DDDR 60-130 bpm.
�
Conclusion: Uncomplicated Medtronic pacemaker implant. The pacing system is MRI conditional.
Recommendation: Routine post pacemaker care.
cc: Cr Coello MD and Roberto Muhammad MD.
[2024-11-04] MEDS: ARICEPT 10 MG PO (22:51)
--- NOTE | 2024-11-04 23:22 | PTCARENOTE ---
Pt rec'd with son at bedside. Son aware of + flu test-offered face mask but son stated he was leaving soon and was aware .Occ. + non prod cough noted Teaching about limb restriction post pacer implant reviewed with son and pt. Pacer site with drsg
in place, no bleeding or hematoma present. immobilizer in use.
CLERGY MEMBER on telemetry
[2024-11-05] MEDS: ANCEF 5 IV (02:44)
[2024-11-05 02:48] VITALS: BP 130/75
--- NOTE | 2024-11-05 03:04 | PTCARENOTE ---
Pt's temp 96.6. room cold, pt had thrown blankets off. warm blankets placed on pt x 2 and temperature increased in room. will recheck in 30 mins.
Pt oriented to self, reorients to surroundings with nursing assist. pt cooperative with staff. am labs,ecg obtained.
[2024-11-05 03:25] LABS: Hematocrit 38.4 % (39.0-52.0); Hemoglobin 13.1 g/dL (13.0-18.0); Mean Corp Hgb Conc. 34.1 g/dL (33.0-37.0); Mean Corpuscular Hgb 31.5 pg (27.0-31.0); Mean Corpuscular Volume 92.3 fL (80.0-94.0); Mean Platelet Volume 11.2 fL (7.4-10.4); Platelet Count 181 10^3/uL (130-400); Red Blood Cell Count 4.16 10^6/uL (4.70-6.10); Red Cell Dist. Width 13.7 % (11.5-14.5); White Blood Cell Count 7.1 10^3/uL (4.8-10.8)
[2024-11-05 03:48] LABS: Blood Urea Nitrogen 21 mg/dl (9-20); Calcium 9.1 mg/dl (8.4-10.2); Carbon Dioxide 26 mmol/L (22-30); Chloride 107 mmol/L (98-107); Estimated Creatinine Clearance 76 ml/min; Glucose 127 mg/dl (70-99); Magnesium 1.8 mg/dl (1.6-2.3); Potassium 4.5 mmol/L (3.5-5.1); Sodium 143 mmol/L (135-145); eGFR > 60.00
--- NOTE | 2024-11-05 03:52 | PTCARENOTE ---
Pt's temp up to 97.1
--- NOTE | 2024-11-05 04:44 | PTCARENOTE ---
Pt assisted to bathroom. gait steady with walker and nursing assist. Pacer site drsg remains intact.
[2024-11-05 07:45] VITALS: BP 109/69
--- NOTE | 2024-11-05 07:51 | W.PN.HOSP.TC ---
Addendum entered and electronically signed by Annette Owens MD 11/05/24 12:46:
I saw and evaluated the patient independently. I reviewed the resident�s note and agree with findings and plan as documented by Dr. Serna.
GENERAL: well developed, well nourished, male in no apparent distress
HEENT: NC/AT---no O2 requirements
HEART:regular rate and rhythm--CARLOS A
LUNGS : clear to auscultation bilaterally
ABDOM: soft, nontender, nondistended, + bowel sounds
EXT: no cyanosis, clubbing, or edema
NEUROLOGIC: apparent signs of Parkinson's
Recent weakness and fall increased falls--likely cardiac conduction disease--EKGs reviewed, have both Mobitz type I and type II secondary heart block--apprec cards--s/p pacer--PT/OT rec SNF but feel pt will do better at home and that falls likely
due to heart block--imaging studies without acute findings--ECHO with preserved EF and mild aortic stenosis/regurg
Influenza A--no URI symptoms so must presume acute--finish treatment with tamiflu
Parkinson's disease--Continue home regimen of Sinemet
Elevated troponins--likely nonischemic myocardial injury
Mild dementia--Continue donepezil
Alcohol use disorder--Patient states that he drinks every day full cup of vodka--Continue MSAS protocol--no signs of withdrawal symptoms --B12, folate, thiamine replenishment
DVT proph--Lovenox
code status --Full code
ok for d/c
Original Note:
Today's Communication/Plan
-
Pending cardiology evaluation, patient to go back to his home with home care.
Assessment / Plan
Assessment / Plan
Assessment:
84-year-old male with a past medical history of hyperlipidemia, BPH, mild dementia, Parkinson disease presented to the [facility] ED on 10/30/2024 from his home at [facility] where he lives with his due to recent history of weakness
and multiple falls. Patient had this weakness for many weeks now and today after dinner he had 3 consecutive falls. He called medics for help and was recommended to go to the hospital for evaluation. In the ED he was found to have secondary heart
block, both Mobitz 1 and 2 were seen. He also used had elevated troponin, and tested positive for influenza. Cardiology was consulted. Patient was admitted to the IVU for further management. Patient underwent successful pacemaker implantation on
11/04/2024. Patient has no complaints, and most likely will be cleared for discharge later today.
Chest X-Ray (11/03/2024):
No acute cardiopulmonary abnormality.
Head CT w/o IV contrast (11/03/2024):
No acute intracranial abnormality noted.
Layering secretions within the left maxillary sinus which can be seen with sinusitis.
Preliminary report provided by [facility] at 0440.
CT Cervical Spine W/o Iv Contr (11/03/2024):
No acute osseous abnormality.
Multilevel degenerative changes most pronounced at C4-C5 and C5-C6.
EKG (11/03/2024 03:04 AM):
SINUS RHYTHM second degree AV block WITH 2:1 A-V CONDUCTION WITH
AND WITH OCCASIONAL PREMATURE VENTRICULAR COMPLEXES
LEFT ANTERIOR FASCICULAR BLOCK
ABNORMAL ECG
WHEN COMPARED WITH ECG OF 30-JUL-2022 08:44,
SINUS RHYTHM IS NOW WITH secnod degree AV blcok WITH 2:1 A-V CONDUCTION
EKG (11/03/2024 03:18 AM):
SINUS RHYTHM WITH 2ND DEGREE A-V BLOCK (MOBITZ I)
LEFT ANTERIOR FASCICULAR BLOCK
CANNOT RULE OUT ANTERIOR INFARCT , AGE UNDETERMINED
ABNORMAL ECG
WHEN COMPARED WITH ECG OF 03-NOV-2024 03:09,
PREMATURE VENTRICULAR COMPLEXES ARE NO LONGER PRESENT
PREMATURE SUPRAVENTRICULAR COMPLEXES ARE NO LONGER PRESENT
EKG (11/03/2024 04:19 AM):
SINUS RHYTHM WITH 2ND DEGREE A-V BLOCK (MOBITZ I)
LEFT ANTERIOR FASCICULAR BLOCK
SEPTAL INFARCT (CITED ON OR BEFORE 03-NOV-2024)
ABNORMAL ECG
WHEN COMPARED WITH ECG OF 03-NOV-2024 03:30,
NO SIGNIFICANT CHANGE WAS FOUND
Echocardiogram (11/03/2024):
Normal biventricular size and systolic function without regional wall motion
abnormality. Estimated LVEF 55%.
Mild aortic stenosis.
Mild aortic regurgitation.
Compared to 10/03/22: high grade AV block is present.
Plan:
# Recent weakness and fall increased falls secondary to cardiac conduction disease
-EKGs as above, found to have both Mobitz type I and type II secondary heart block
-Cardiology consulted, input appreciated
-Patient admitted to IVU for further management and telemetry
-CT cervical spine and head as above, no acute findings on both
-Echo results as above
-Patient underwent successful pacemaker implantation on 11/04/2024
-Patient to be discharged today pending cardiology evaluation
# Influenza A
-Patient tested positive for flu
-May have been causing his symptoms including weakness and recent falls
-No reported GI symptoms such as nausea, vomiting, diarrhea
-Chest x-ray as above, no acute findings
-Will give Tamiflu 75 twice daily for 5 days (currently day 3)
-Supportive therapy as needed
# Parkinson's disease
-Continue home regimen of Sinemet
# Elevated troponins
-Peaked, most likely due to nonischemic disease
-No longer trending
# Mild dementia
-Continue donepezil
# Alcohol use disorder
-Patient states that he drinks every day full cup of vodka
-MSAS score of 1
-B12, folate, thiamine replenishment
-Watch for any withdrawal symptoms
DVT prophylaxis: Lovenox
Full code
Anticipated Discharge: Today
Subjective/Interval History
-
Date of Service: November 05, 2024
Patient seen this morning and had no acute complaints. As per nurse patient was able to get out of bed and ambulate last night with support. Patient looking forward to going home today. Reports no shortness of breath, chest pain. Had some mild
hypothermia last night but was resolved
Objective Data
-
Labs:
Laboratory Results
11/05/24
02:58
WBC 7.1
Hgb 13.1
Hct 38.4 L
Plt Count 181
Sodium 143
Potassium 4.5
Chloride 107
Carbon Dioxide 26
BUN 21 H
Creatinine 0.9
Glucose 127 H
Calcium 9.1
Vital Signs:
Vital Signs
Temp Pulse Resp BP Pulse Ox
97.1 F 68 20 130/75 97
11/05/24 03:47 11/05/24 03:00 11/05/24 03:04 11/05/24 02:48 11/05/24 03:04
I&O
11/04/24 11/05/24 11/06/24
06:59 06:59 06:59
Intake Total 480 / 480
Output Total 500 / 500
Balance -20 / -20
Review of Systems
-
History Source: Patient
Constitutional: Denies Fever, Fatigue or Chills
EENT: Reports No Symptoms Reported
Respiratory: Denies Cough, Trouble Breathing or Wheezing
Cardiac: Denies Chest Pain or Palpitations
Abdomen/GI: Denies Abdominal Pain, Nausea or Vomiting
Musculoskeletal: Reports No Symptoms
Neuro: Reports No Symptoms
Physical Exam
-
General: Well Developed, Well Nourished, No Apparent Distress, Comfortable and Conversant
HEENT: Normocephalic and Atraumatic
Respiratory: Clear to Auscultation and Non Labored Respirations
Cardiac: S1/S2 and Irregular Rhythm (Pacemaker placed)
GI: Soft, Nontender and Nondistended
Musculoskeletal: No Clubbing, No Cyanosis and No Edema
Skin: Warm
Neuro: Awake, Alert, Oriented and AO x 3
Psych: Calm and Other (Tremors in left hand, signs of Parkinson's)
Data Reviewed
-
Labs: Labs Reviewed by me, Discussed with Physician, Discussed with Nurse and Discussed with Patient
--- NOTE | 2024-11-05 08:37 | W.PN.CD ---
Addendum entered and electronically signed by Ranjan Peña MD 11/05/24 10:58:
I saw and examined the patient.
The RETAIL SALES CLERK's note was reviewed and I agree with the note.
Comment: Pacer site/CXR/EKG/tele all good. Pain controlled. Cardiac f/u arranged. OK for home from cardiac perspective. We will sign off. Please call with questions.
Original Note:
Today's Communication / Plan
-
Activity restrictions reviewed at the bedside with the patient
Impression / Plan
-
I/P: 84M with dyslipidemia, BPH, dementia, and Parkinson's who is here for weakness and falls. He is flu A positive. He was found to have heart block.
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
-Both Mobitz 1 and 2:1 conduction seen
-TSH WNL. He is not on BB or CCB.
-Severe requiring pacemaker implant 11/04/2024, EKG stable, no intra/postprocedural complications
Influenza A positive
-Management per primary team
Parkinson's disease:
-on medical therapy
Acute, non-ischemic myocardial injury, in setting of influenza and heart block
-No chest pain
-EKG without acute ischemia
-Echocardiogram stable
Aortic stenosis, mild on TTE, peak/mean gradient 29/16 mmHg, POORNIMA 1.7 cm�
Mild aortic regurgitation
Physical Exam
Vital Signs/Labs
Vital Signs
Temp Pulse Resp BP Pulse Ox
97.4 F 68 16 130/75 96
11/05/24 07:41 11/05/24 03:00 11/05/24 07:41 11/05/24 02:48 11/05/24 07:41
11/05/24 02:58
11/05/24 02:58
Magnesium 1.8 mg/dl (1.6-2.3) 11/05/24 02:58
LAB Results
11/03/24 11/03/24 11/03/24
03:20 06:18 09:23
Troponin I 0.032 0.047 H* D 0.052 H*
11/03/24 11/03/24
13:05 20:00
Troponin I 0.045 H* Cancelled
Physical Exam
Constitutional: No acute distress and Comfortable
EENT: Anicteric and Moist mucous membranes
Cardiovascular: Rhythm & rate is regular, Pedal edema is absent and S1S2 is normal
Respiratory: Respiratory effort normal and Lungs clear to auscul.
GI: Soft, Distention absent and Non tender
Neuro/Psych: AO x 3
Other: Cardiac Device Site (Dressing C/D/I, no hematoma, no pocket fullness)
Data Reviewed
-
Date of Service: November 05, 2024
[2024-11-05] MEDS: VITAMIN B1 100 MG PO (08:54)
[2024-11-05] MEDS: SINEMET 25-100 3 TABLET PO (08:54)
[2024-11-05] MEDS: LIPITOR 20 MG PO (08:54)
[2024-11-05] MEDS: THERAGRAN 1 TABLET PO (08:54)
[2024-11-05] MEDS: OCUVITE SOFTGEL 1 CAP PO (08:54)
[2024-11-05] MEDS: VITAMIN B-6 100 MG PO (08:54)
[2024-11-05] MEDS: NAMENDA 10 MG PO (08:54)
[2024-11-05] MEDS: PROSCAR 5 MG PO (08:54)
[2024-11-05] MEDS: FOLTX 1 TABLET PO (08:54)
[2024-11-05] MEDS: TAMIFLU 75 MG PO (08:55)
[2024-11-05 09:11] VITALS: PULSE 76; O2SAT 95
[2024-11-05 11:25] VITALS: BP 123/62
--- NOTE | 2024-11-05 14:11 | W.DCSUMMARY ---
Addendum entered and electronically signed by Annette Owens MD 11/05/24 14:34:
Read, reviewed, and agree. See same day progress note for additional details. Time spent coordinating care, DC planning, review of DC plan of care with resident, transition of care, review of records in EMR, med rec, consults, notes, d/w
consultants, nursing, family, and CM = 32 minutes
Original Note:
Discharge Summary
Discharge Data
Date of Admission: 11/03/24
Date of Discharge: 11/05/24
-
Pending Results: No
Hospital Course
CC to PCP: Dr. Roberto Muhammad
Discharging Physician : Dr. Naty Serna, Dr. nAnette Owens
�
Disposition�:�Home with home care
�
Primary�care�physician�: Dr. Roberto Muhammad
�
Principal�Discharge�Diagnosis�:�
Recent weakness and fall increased falls secondary to cardiac conduction disease
Procedure: Medtronic pacemaker implant 11/04/24
Influenza A
Chronic�Discharge�Diagnosis:�
Parkinson's disease
Mild dementia
Hospital�Course�:��
84-year-old male with a past medical history of hyperlipidemia, BPH, mild dementia, and Parkinson's disease presented to the [facility] ED on 10/30/2024 from his home at [facility] where he lives with his due to recent history of
weakness and multiple falls. Patient had this weakness for many weeks now and after dinner he had 3 consecutive falls. He called medics for help and was recommended to go to the hospital for evaluation. In the ED he was found to have secondary
heart block (both Mobitz 1 and 2 were seen on ECG) along with elevated troponin levels. Further more, patient tested positive for influenza. Cardiology was consulted. Patient was admitted to the IVU for further management. Patient was started on
Tamiflu for influenza treatment however patient remained afebrile, and had no signs of acute respiratory distress. Patient was evaluated by cardiology and was scheduled for pacemaker implantation. Patient underwent successful pacemaker
implantation on 11/04/2024 and had no adverse events following implantation. Patient continued to do well and was medically cleared for discharge as per cardiology and medical team. Patient to go back home with his with home health care with
visiting nurse and physical therapy. Patient to continue Tamiflu for 2 more days after today. Patient given instructions about pacemaker management, and further outpatient follow-up with cardiology was scheduled. Patient also to follow-up with
PCP within 1 week.
Important�imaging�findings�:��
Chest X-Ray (11/03/2024):
No acute cardiopulmonary abnormality.
Head CT w/o IV contrast (11/03/2024):
No acute intracranial abnormality noted.
Layering secretions within the left maxillary sinus which can be seen with sinusitis.
Preliminary report provided by [facility] at 0440.
CT Cervical Spine W/o Iv Contr (11/03/2024):
No acute osseous abnormality.
Multilevel degenerative changes most pronounced at C4-C5 and C5-C6.
EKG (11/03/2024 03:04 AM):
SINUS RHYTHM second degree AV block WITH 2:1 A-V CONDUCTION WITH
AND WITH OCCASIONAL PREMATURE VENTRICULAR COMPLEXES
LEFT ANTERIOR FASCICULAR BLOCK
ABNORMAL ECG
WHEN COMPARED WITH ECG OF 30-JUL-2022 08:44,
SINUS RHYTHM IS NOW WITH secnod degree AV blcok WITH 2:1 A-V CONDUCTION
EKG (11/03/2024 03:18 AM):
SINUS RHYTHM WITH 2ND DEGREE A-V BLOCK (MOBITZ I)
LEFT ANTERIOR FASCICULAR BLOCK
CANNOT RULE OUT ANTERIOR INFARCT , AGE UNDETERMINED
ABNORMAL ECG
WHEN COMPARED WITH ECG OF 03-NOV-2024 03:09,
PREMATURE VENTRICULAR COMPLEXES ARE NO LONGER PRESENT
PREMATURE SUPRAVENTRICULAR COMPLEXES ARE NO LONGER PRESENT
EKG (11/03/2024 04:19 AM):
SINUS RHYTHM WITH 2ND DEGREE A-V BLOCK (MOBITZ I)
LEFT ANTERIOR FASCICULAR BLOCK
SEPTAL INFARCT (CITED ON OR BEFORE 03-NOV-2024)
ABNORMAL ECG
WHEN COMPARED WITH ECG OF 03-NOV-2024 03:30,
NO SIGNIFICANT CHANGE WAS FOUND
Echocardiogram (11/03/2024):
Normal biventricular size and systolic function without regional wall motion
abnormality. Estimated LVEF 55%.
Mild aortic stenosis.
Mild aortic regurgitation.
Compared to 10/03/22: high grade AV block is present.
Discharge Plan
-
Patient Disposition: Home with Home Care
Discharge Diagnosis/Procedures: Recent weakness and fall increased falls secondary to cardiac conduction disease
Influenza A
Parkinson's disease
Mild dementia
Procedure: Medtronic pacemaker implant 11/04/24
Diet: Low Cholesterol
Activity: No strenuous activity
Additional Activity: See attached instructions
Driving Restrictions: No driving for 1 week
Bathing Restrictions: OK to Shower
Other Services: VN and PT
Specialty Instructions: Weigh Daily- Call MD for wt gain/loss 3 lbs overnight/5 lbs in 1 week
Stand Alone Forms: DC Inst - Implanted Device
Referrals:
Roberto Muhammad MD [Active] - in less than 1 week
Ranjan Peña MD [Active] - 11/11/24 1:40 pm (Incision check appointment)
Additional Discharge Medication Instructions: Follow up with Cardiology as instructed
Follow up with PCP as instructed
Take Oseltamivir (Tamiflu) 75mg one tablet twice a day for 3 more days (including tonight)
Prescriptions:
New
oseltamivir 75 mg Capsule
75 mg PO BID 3 Days Qty: 5 0RF
Continued
pyridoxine (vitamin B6) 100 mg Tablet
100 mg PO DAILY
ascorbic acid (vitamin C) [Vitamin C] 1,000 mg Tablet
1,000 mg PO DAILY
atorvastatin 20 mg Tablet
20 mg PO DAILY
finasteride 5 mg Tablet
5 mg PO DAILY
PreserVision AREDS-2 250-90-40-1 mg Capsule
1 tab PO BID
donepezil 10 mg Tablet
10 mg PO HS
carbidopa-levodopa 25-100 mg Tablet
3 tab PO TID
therapeutic multivitamin Tablet
1 tab PO DAILY
cyanocobalamin (vitamin B-12) 500 mcg Tablet
1,000 mcg PO DAILY
folic acid 1 mg Tablet
1 mg PO DAILY
Fish Oil 120-180 mg Capsule
2 cap PO DAILY
memantine 10 mg Tablet
10 mg PO DAILY
Discharge Orders:
Discharge Patient (As Directed); Ordered 11/05/24
Ordered By: Naty Serna
Care Plan Goals
Care Plan Goals:
Problem: Readiness for enhanced knowledge related to diagnosis and treatment plan
Goal: Understand your diagnosis and treatment plan needs, including medications if applicable.
Instructions: Know your diagnosis, underlying causes and treatment plan options, including medications if applicable. Consult with your health care team to learn about your diagnosis and treatment plan, including medications if applicable.
Discharge Date and Time
Print Language: LATVIAN
== END 2024-11-05 14:53 | disposition home health service (06) | DRG 243 ==
LOC: IVU 09:53
PROVIDERS: Internal Medicine Cardiovascular Disease; ADMITTING PHYSICIAN Internal Medicine; CONSULT PHYSICIAN Internal Medicine Cardiovascular Disease; EMERGENCY PHYSICIAN Emergency Medicine
PROC: 02HK3JZ Insertion of Pacemaker Lead into Right Ventricle, Percutaneous Approach (ICD-10-PCS; 2024-11-04)
PROC: 02H63JZ Insertion of Pacemaker Lead into Right Atrium, Percutaneous Approach (ICD-10-PCS; 2024-11-04)
PROC: B51N1ZZ Fluoroscopy of Left Upper Extremity Veins using Low Osmolar Contrast (ICD-10-PCS; 2024-11-04)
PROC: 0JH606Z Insertion of Pacemaker, Dual Chamber into Chest Subcutaneous Tissue and Fascia, Open Approach (ICD-10-PCS; 2024-11-04)
DX: I44.1 Atrioventricular block, second degree (principal); I5A Non-ischemic myocardial injury (non-traumatic); J10.1 Influenza due to other identified influenza virus with other respiratory manifestations; G20.A1 Parkinson's disease without dyskinesia, without mention of fluctuations; F02.A0 Dementia in other diseases classified elsewhere, mild, without behavioral disturbance, psychotic disturbance, mood disturbance, and anxiety; E78.00 Pure hypercholesterolemia, unspecified; R29.6 Repeated falls; F10.10 Alcohol abuse, uncomplicated; I49.3 Ventricular premature depolarization; I44.4 Left anterior fascicular block; Z88.1 Allergy status to other antibiotic agents; Z79.899 Other long term (current) drug therapy; R32 Unspecified urinary incontinence; N40.1 Benign prostatic hyperplasia with lower urinary tract symptoms
CPT/HCPCS: 33208; 70450; 71045; 71046; 72125; 80048; 80053; 81003; 81015; 83735; 84443; 84484; 85025; 85027; 87070; 87502; 87811; 93005; 93306; 97163; 97167; 97530; 99285; C1769; C1785; C1887; C1892; C1898; Q9967

== ENCOUNTER 2024-11-23 21:26 | Inpatient (IN) | payer MEDICARE, OTHER, SELFPAY ==
[2024-11-23] VITALS (25 sets, daily range): BP systolic 78–116; BP diastolic 42–63; BMI 30.7
--- NOTE | 2024-11-23 17:20 | ED.GENMED ---
History of Present Illness
General
Chief Complaint: Change in Mental Status
Source: patient
Exam Limitations: none
Time Seen by Provider: 11/23/24 17:15
Nursing documentation reviewed up to this point in time: agreed with
History of Present Illness
History of Present Illness:
Patient is an 84-year-old male with past medical history of Alzheimer's, Parkinson's , heart block (Mobitz 1 and 2 with recent pacemaker (11/04/24) who lives at home with and [employer]. at bedside reports she was out for for 2 hours
and when she came home patient had vomited and had vomit on himself. She reports she was sweaty. Patient presents here with a temp of 103.9 he is able to state his name but not able to give history. He does attempt to follow commands.
reports he has not been sick at home.
reports patient does have memory issues but normally would know who she is and did not know who she was today. He does normally get show himself shower she does need assistance with getting dressed.
Review of Systems
Review of Systems
Allergies reviewed?: Yes
Unable to obtain full review of systems at this time due to: dementia
Other source history: family
All Other Systems: ROS reviewed and negative except as documented in HPI and ROS
EENT: Reports no symptoms
Cardiac: Reports no symptoms
ABD/GI: Reports vomiting
: Reports no symptoms
Phy Exam
General Physical Exam
General Presentation: no apparent distress
General age: appears stated age
General Skin: warm and dry
General Habitus: elderly
General Mental: confused
General Hydration: dry mucous membranes
Cardiovascular Exam
Cardiovascular Exam: regular rate/rhythm, no murmur and normal peripheral pulses
Pulmonary Exam
Pulmonary Exam: lungs clear, no respiratory distress and other (+ left chest with recent PM site , no erythema or drainage )
Gastrointestinal Exam
Gastrointestinal Exam: non tender and soft
Neurological Exam
Neurological Exam: alert and other (Able to state name confused to place attempts to follow commands;)
Musculoskeletal Exam
Musculoskeletal Exam: full ROM
Skin Exam
Skin Exam: normal color and warm/dry
Psychiatric Exam
Psychiatric Exam: normal mood/affect
Sepsis
Sepsis Screening
Sepsis Assessment: Sepsis Ruled Out
Sepsis Screen
Sepsis Screen: Sepsis Ruled Out
Date: 11/23/24
Time: 19:56
Course
Orders/Labs/Results
Orders:
Orders
11/23/24 17:[address] [CT Head W/o Iv Contrast] Urgent
Comment:
Reason For Exam: chamge in mentation
11/23/24 17:16
Complete Blood Count/With Diff Urgent
Comprehensive Metabolic Panel Urgent
Lipase Urgent
Urinalysis Reflex To Culture Urgent
Date Specimen was Collected: 11/23/24
Time Specimen was Collected: 17:08
Urine Microscopic Reflex Cult Urgent
Urine Culture Urgent
MARLENE Source: U
Specimen Description:
Date Specimen was Collected: 11/23/24
Time Specimen was Collected: 17:08
11/23/24 17:18
COVID-19 Antigen Urgent
Source: Nasal Swab
Lactic Acid Urgent
Blood Culture Urgent
MARLENE Source: Blood/Venous
Specimen Description:
INF RAPID [Influenza A+B Rapid Molecular] Urgent
MARLENE Source: Nasal Swab
Specimen Description:
11/23/24 17:19
CR Chest Portable - 1 View Urgent
Comment:
Reason For Exam: cough
Reason Study Needs to be Portable: Patient Unstable
11/23/24 17:20
Blood Culture Urgent
MARLENE Source: Blood/Venous
Specimen Description:
11/23/24 17:29
Acetaminophen [Tylenol/Feverall] 650 mg RECTAL NOW STA
11/23/24 17:34
0.9% Sodium Chloride 1000 ml [Nss] 1,000 ml IV BOLUS
11/23/24 17:36
Electrocardiogram (*1) Stat
Reason for Study: Other
Other Reason for Exam: chest pain
Cardiac Monitoring- Treatment ONCE
EKG- Treatment ONCE
Abnormal Lab Results
11/23/24
17:16
WBC 11.2 H 10^3/uL
(4.8-10.8)
RBC 4.21 L 10^6/uL
(4.70-6.10)
Hct 38.9 L %
(39.0-52.0)
MCH 31.1 H pg
(27.0-31.0)
Absolute Neuts (auto) 10.9 H 10^3/uL
(1.4-6.5)
Absolute Lymphs (auto) 0.2 L 10^3/uL
(1.2-3.4)
Neutrophils % 97.0 H %
(42.2-75.2)
Lymphocytes % 2.0 L %
(20.5-51.1)
Monocytes % 0.5 L %
(1.7-9.3)
Chloride 111 H mmol/L
(98-107)
Carbon Dioxide 17 L mmol/L
(22-30)
BUN 36 H mg/dl
(9-20)
Creatinine 2.3 H mg/dL
(0.7-1.3)
Glucose 126 H mg/dl
(70-99)
ALT 52 H U/L
(0-50)
Lipase 511 H U/L
(23-300)
Urine Ketones 1+ A
(Negative)
Urine Bilirubin 2+ A
(Negative)
Leukocyte Esterase Rfl 1+ A
(Negative)
Urine Bacteria (Reflex) Many A
(Negative)
Urine Albumin (Reflex) 3+ A
(Neg - Trace)
11/23/24 17:16
11/23/24 17:16
Vital Signs
Initial and Last Documented VS:
Initial Vital Signs
Temp Pulse Resp BP Pulse Ox
103.9 F H 92 24 78/52 96
11/23/24 16:58 11/23/24 16:58 11/23/24 16:58 11/23/24 16:58 11/23/24 16:58
Last Documented Vital Signs
Temp Pulse Resp BP Pulse Ox
103.9 F H 89 27 92/47 96
11/23/24 16:58 11/23/24 19:15 11/23/24 19:15 11/23/24 19:15 11/23/24 17:30
Wound Treatment Rn consulted with Physician
Wound Treatment Rn consulted with physician?: Yes
Name of Physician Consulted: regulo
MDM/Problems Addressed
Differential Diagnosis Includes:
Not limited to viral syndrome, dehydration, COVID, flu, electrolyte abnormality, UTI, pneumonia
MDM/Problems Addressed:
Patient is an 84-year-old male who presents to the ER for evaluation. Patient has a history Parkinson's and dementia however was found that his vomit at home. left briefly to go to the store. Patient presents to the ER he is able to state
name however otherwise attempts to follow commands but very confused, lethargic on arrival and hypertensive. Patient as documented recently had a pacemaker 11/04. Site looks good without any evidence of infection.
Patient was found to be febrile with a temp of 103.9 was given rectal Tylenol white count elevated 11.2. Patient's BUN and creatinine are newly elevated with a BUN of 36 and creatinine of 2.3. Patient was given liter of fluids and blood pressure
did improve. Patient with normal lactic negative COVID-negative flu
Chronic conditions affecting care:
Alzheimer's, Parkinson's recent pacemaker insertion
*Radiology
Radiology exam reviewed: radiology read reviewed
*Pulse Oximetry
Patient hypoxic: no
*EKG
Interpreted by ED Provider?: Yes
Heart Rate: 88
Rate: normal
Rhythm: ventricular paced
Ischemia: non-specific ST changes
*Critical Care Note
Total Time (30-74mins, 75-104mins- exclusive of procedures): Not Applicable
ED Attending Note
-
Portions of this chart may have been created with voice recognition software.� Occasional wrong word or��sound alike� substitutions may have occurred due to the inherent limitations of voice recognition software.
Discharge Plan
Departure
Patient Disposition: Admit
Date of Disposition: 11/23/24
Time of Disposition: 19:55
Admit to: Telemetry
Admit to doctor: hospitalist
Presentation/result/management discussed w/ accepting MD/DO: Hospitalist
Patient with high blood pressure during this ER visit?: No
Condition: Fair
Covid-19: Not Applicable
Discharge Problem:
Fever, Nausea & vomiting, Acute renal insufficiency, change in ms
Prescriptions:
No Action
pyridoxine (vitamin B6) 100 mg Tablet
100 mg PO DAILY
ascorbic acid (vitamin C) [Vitamin C] 1,000 mg Tablet
1,000 mg PO DAILY
atorvastatin 20 mg Tablet
20 mg PO DAILY
finasteride 5 mg Tablet
5 mg PO DAILY
PreserVision AREDS-2 250-90-40-1 mg Capsule
1 tab PO BID
donepezil 10 mg Tablet
10 mg PO HS
carbidopa-levodopa 25-100 mg Tablet
3 tab PO TID
therapeutic multivitamin Tablet
1 tab PO DAILY
cyanocobalamin (vitamin B-12) 500 mcg Tablet
1,000 mcg PO DAILY
folic acid 1 mg Tablet
1 mg PO DAILY
Fish Oil 120-180 mg Capsule
2 cap PO DAILY
memantine 10 mg Tablet
10 mg PO DAILY
cholecalciferol (vitamin D3) [Vitamin D3] 25 mcg (1,000 unit) Tablet
25 mcg PO DAILY
Referrals:
UNKNOWN - PT DOES,NOT KNOW [Family Provider] -
Interventions
Interventions:
*Risk Screen - Suicide Last Done: 11/23/24 16:58
*General Assessment Last Done: 11/23/24 16:58
*Neglect/Abuse Screening Last Done: 11/23/24 16:58
*ED- Fall Risk Assessment Last Done: 11/23/24 16:58
*ED COVID-19 Vaccine History Last Done: 11/23/24 16:58
ED- Cardiac Assessment Last Done: 11/23/24 16:58
ED- Neurological Assessment Last Done: 11/23/24 16:58
ED Swallowing Screen Last Done: 11/23/24 17:38
Discharge Date and Time
Print Language: [id number]
[2024-11-23] MEDS: NSS 1000 IV (17:38)
[2024-11-23 17:39] LABS: Urine Albumin 3+ (Neg - Trace); Urine Bilirubin 2+ (Negative); Urine Character Clear (Clear); Urine Color Yellow; Urine Glucose Negative (Negative); Urine Ketone 1+ (Negative); Urine Leukocyte 1+ (Negative); Urine Nitrite Negative (Negative); Urine Occult Blood Negative (Negative); Urine Specific Gravity 1.025 (<1.030); Urine Urobilinogen 1+ (Neg - 1+)
[2024-11-23] MEDS: TYLENOL/FEVERALL 650 MG RECTAL (17:39)
[2024-11-23 17:44] LABS: Lactic Acid 1.7 mmol/L (0.7-2.0)
[2024-11-23 17:46] LABS: ALT (SGPT) 52 U/L (0-50); AST (SGOT) 58 U/L (17-59); Albumin 4.8 g/dl (3.5-5.0); Alkaline Phosphatase 112 U/L (38-126); Blood Urea Nitrogen 36 mg/dl (9-20); Carbon Dioxide 17 mmol/L (22-30); Chloride 111 mmol/L (98-107); Estimated Creatinine Clearance 30 ml/min; Glucose 126 mg/dl (70-99); Lipase 511 U/L (23-300); Potassium 4.4 mmol/L (3.5-5.1); Sodium 143 mmol/L (135-145); Total Bilirubin 0.8 mg/dl (0.2-1.3); Total Protein 7.2 g/dl (6.3-8.2); eGFR 27.66
[2024-11-23 17:47] LABS: Hematocrit 38.9 % (39.0-52.0); Hemoglobin 13.1 g/dL (13.0-18.0); Mean Corp Hgb Conc. 33.7 g/dL (33.0-37.0); Mean Corpuscular Hgb 31.1 pg (27.0-31.0); Mean Corpuscular Volume 92.4 fL (80.0-94.0); Mean Platelet Volume 10.4 fL (7.4-10.4); Platelet Count 222 10^3/uL (130-400); Red Blood Cell Count 4.21 10^6/uL (4.70-6.10); Red Cell Dist. Width 14.1 % (11.5-14.5); White Blood Cell Count 11.2 10^3/uL (4.8-10.8)
[2024-11-23 17:49] LABS: COVID-19 Antigen Negative (Negative)
[2024-11-23 18:30] LABS: Urine Calcium Oxalate Crystals Seen
[2024-11-23 18:31] LABS: Urine Red Blood Cell 0-2 /HPF (0-2)
[2024-11-23 18:33] LABS: Urine Amorphous Seen; Urine Bacteria Many (Negative)
[2024-11-23 18:45] LABS: % Basophils 0.3 % (0-2); % Immature Granulocytes 0.2 % (0-0.5); % Monocytes 0.5 % (1.7-9.3); Absolute Lymphocytes 0.2 10^3/uL (1.2-3.4); Absolute Monocytes 0.1 10^3/uL (0.1-0.6); Absolute Neutrophils 10.9 10^3/uL (1.4-6.5); Nucleated Red Blood Cells % 0 % (-)
--- NOTE | 2024-11-23 20:44 | HPS.HSE ---
Family Physician
-
Family Physician: NOT KNOW UNKNOWN - PT DOES
Chief Complaint
-
Vomiting and Change in Mental Status
History of Present Illness
Patient is an 84 y/o male past medical history of Parkinson's Disease, Dementia and recent pacemaker placement who presents with vomiting and change in mental status. Additional history is obtained from patient's at the bedside. went out
for a few hours today and upon returning home she noted patient had vomited. Patient was also very confused specifically not knowing who she was. immediately called EMS and upon arrival to the emergency department patient was found to have a
fever of 103.9F. notes patient had a very bad episode of diarrhea last night. Patient denies any abdominal pain.
Medical History
Past Medical History
Past Medical History: Reports Other
Additional Past Medical History:
Parkinson's Disease
Heart Block s/p Pacemaker
Hyperlipidemia
Alzheimer's Dementia
Alcohol Use Disorder
BPH
Past Surgical History: Reports Other
Additional Past Surgical History:
Bilateral Hip Replacement
Right Total Knee Replacement
Social History
Tobacco: Non-smoker
Alcohol: Daily (2-3 ounces of Vodka Daily)
Drug: None
Personal:
Living: With Family
Family History
Family History: Not pertinent
Allergies / Home Medications
Allergies reflects when Allergies were last updated in [facility].
Home Medications with original date entered in [facility]
Allergy/Medication List:
Allergies
Allergy/AdvReac Type Severity Reaction Status Date / Time
cephalexin [From Keflex] Allergy Vomiting Verified 11/23/24 20:57
4-5 y/a
Home Medications
ascorbic acid (vitamin C) 1,000 mg tablet (Vitamin C) 1,000 mg PO DAILY Supplement 07/24/22
atorvastatin 20 mg tablet 20 mg PO DAILY High cholesterol 07/24/22
finasteride 5 mg tablet 5 mg PO DAILY Urinary issue 07/24/22
vit C 250 mg-vit E 90 mg-zinc 40 mg-copper 1 ak-sfanfw-epdgax capsule (PreserVision AREDS-2) 1 tab PO BID Supplement 07/24/22
pyridoxine (vitamin B6) 100 mg tablet 100 mg PO DAILY Supplement 07/30/22
carbidopa 25 mg-levodopa 100 mg tablet 3 tab PO TID 11/03/24
cyanocobalamin (vitamin B-12) 500 mcg tablet 1,000 mcg PO DAILY 11/03/24
docosahexaenoic acid (dha)-epa 120 mg-180 mg capsule (Fish Oil) 2 cap PO DAILY 11/03/24
donepezil 10 mg tablet 10 mg PO HS 11/03/24
folic acid 1 mg tablet 1 mg PO DAILY 11/03/24
memantine 10 mg tablet 10 mg PO DAILY 11/03/24
therapeutic multivitamin 1 tab PO DAILY 11/03/24
cholecalciferol (vitamin D3) 25 mcg (1,000 unit) tablet (Vitamin D3) 25 mcg PO DAILY 11/23/24
Review of Systems
-
Unable to obtain full review of systems at this time due to: Dementia
Physical Exam
Vital Signs
Vital Signs
Temp Pulse Resp BP Pulse Ox
103.9 F H 89 27 92/47 96
11/23/24 16:58 11/23/24 19:15 11/23/24 19:15 11/23/24 19:15 11/23/24 17:30
Physical Exam
General: Well Developed, Well Nourished and Other (Appears acutely ill, diaphoretic )
HEENT: Anicteric and Moist mucous membranes
Respiratory: Clear and Non Labored Respirations
Cardiac: S1/S2, Regular Rhythm, Murmur and Other (Left upper chest pacemaker site appears clean, dry and intake without tenderness to palpation)
GI: Soft, Non Tender and Other (Slightly hyperactive bowel sounds)
Rectal: Deferred by Provider
Musculoskeletal: No Clubbing and No Cyanosis
Skin: Warm
Neuro: Awake, Alert and Nonfocal/grossly intact
Psych: Calm and Confused
Laboratory Results
-
11/23/24 17:16
11/23/24 17:16
Laboratory Results
Lactic Acid 1.7 mmol/L (0.7-2.0) 11/23/24 17:18
Total Bilirubin 0.8 mg/dl (0.2-1.3) 11/23/24 17:16
AST 58 U/L (17-59) 11/23/24 17:16
ALT 52 U/L (0-50) H 11/23/24 17:16
Alkaline Phosphatase 112 U/L (38-126) 11/23/24 17:16
Lipase 511 U/L (23-300) H 11/23/24 17:16
Data Reviewed
-
Diagnostic Radiology: Report Reviewed by me
Lab Data: Labs Reviewed by me
Impression/Plan
-
Severe Sepsis, unclear source possibly intra-abdominal / gastrointestinal vs bacteremia following recent pacemaker placement
-Admit to IMU
-BP remains on the low side - Give 2L NSS bolus to complete sepsis protocol - If BP remains low following fluid resuscitation start pressors
-Check Abd/Pelvis CT scan
-Check stool studies
-Await blood cultures
-Start empiric vancomycin and cefepime
Acute Kidney Injury
-Continue IVFs
-Recheck creatinine in AM following fluid resuscitation
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
-Stable
Parkinson's Disease
-Continue Sinemet
Hyperlipidemia
-Continue atorvastatin
Alzheimer's Dementia
-Continue donepezil and memantine
BPH
-Continue finasteride
Alcohol Use Disorder
-Continue thiamine and folic acid
-Continue alcohol withdrawal protocol
DVT proph: SV Heparin
Code Status: Full Code
--- NOTE | 2024-11-23 21:04 | W.PN.UPDATE ---
Update Note
Progress Note Update
Patient seen in conjunction with ROBYN. I agree the findings are physical. I concur with assessment and plan listed otherwise.
This is a 84-year-old male with past medical history significant for Parkinson's disease, dementia, BPH, recent secondary AV block status post pacemaker placement about 3 weeks ago who presents to the emergency department with confusion on fever and
altered mental status.
According to spouse patient had significant amount of diarrhea the previous evening. When she found him this morning he was struggled with diarrhea and had evidence of having vomited later on during the day. Did not have any abdominal pain. He
did not have any further diarrheal movements. He had no urinary complaints. He had no cough or shortness of breath. He was more confused compared to baseline. They found him diaphoretic and then decided to bring him to the emergency department.
In the emergency department he was hypotensive, febrile to 103, ECG with a paced rhythm. Oxygen saturation was 96% on room air. Chest x-ray was clear. UA showed bacteremia but otherwise negative. CT of the head shows no acute intracranial
process. COVID and flu testing was negative. He had leukocytosis 11.2 otherwise CBC was unremarkable. Electrolytes BUN and creatinine were notable for creatinine of 2.3 up from baseline of around 0.9.
My examination he was awake alert and oriented to person and place. Recognized her family members and was moving all 4 extremities slowly. He is abdominal exam was nontender. There was no rebound or guarding.
Assessment and plan
This is an 84-year-old with history of Parkinson disease who presents with fever confusion, fever is currently of unknown origin with source presumed to be possibly secondary to intra-abdominal source suggested diarrhea versus intra-abdominal
abscess. Other possibility includes bacteremia in the setting of his recent pacemaker placement. Pacemaker site is clean dry and intact without any pain swelling or tenderness. He is sepsis and meets shock criteria pending fluid bolusing.
- Admit to IMU
- Sepsis fluid bolus at 30 cc/kg
- Pressors to maintain MAP greater than 65
-N.p.o. for now
-Blood cultures sent
-Urine cultures pending
-IV vancomycin and cefepime for now,
-CT of the abdomen and pelvis with oral contrast, no IV contrast
-Gentle hydration, n.p.o., for withdrawal protocol as patient drinks glass of vodka nightly.
DVT prophylaxis with heparin subcu
CODE STATUS�full code
[2024-11-23] MEDS: NSS 2000 IV (21:18)
[2024-11-23] MEDS: OMNIPAQUE 50 ML PO (21:23)
[2024-11-23] MEDS: MAXIPIME 2000 MG IV (21:23)
[2024-11-23] MEDS: VANCOCIN 540 MG IV (21:29)
[2024-11-23] MEDS: STERILE WATER FOR INJECTION 10 ML IV (21:29)
[2024-11-23] MEDS: FLUSH (NSS) 1 FLUSH IV (21:29)
--- NOTE | 2024-11-23 22:29 | PHA.VAN.IN ---
Assessment
- Assessment
Renal Function: Appears elevated from baseline (11/05/24 BASELINE SCR: 0.9)
Concomitant Antimicrobials: CEFEPIME
- Previous Dosing Experience
Previous Regimen: NONE
Plan
- Plan
Initial / Loading Dose: 2GM
Maintenance Regimen: DOSING BY RANDOM LEVEL
Monitoring: RANDOM VANCOMYCIN LEVEL 11/24/24 AM
Pharmacokinetics Vancomycin I
- -
Patient Age: 84
Patient Sex: Male
Vancomycin Day #: 1
Indication: Other (SEPSIS)
Requesting Provider: GILMAR
Height / Weight:
Height 5 ft 11 in
Actual Weight 99.7 kg
Pertinent Past Medical History: ALCOHOL USE DISORDER
- Vital Signs / Lab Results
Temp Pulse Resp BP Pulse Ox
98.0 F 78 22 116/56 96
11/23/24 22:28 11/23/24 22:00 11/23/24 21:30 11/23/24 22:00 11/23/24 22:00
Lab Results - Hematology
11/23/24
17:16
WBC 11.2 H
Lab Results - Chemistry
11/23/24
17:16
BUN 36 H
Creatinine 2.3 H
Estimated Creat Clear 30
Albumin 4.8
11/23/24
17:18
Lactic Acid 1.7
Lab Results - Urine
11/23/24
17:16
Urine Nitrite (Reflex) Negative
Leukocyte Esterase Rfl 1+ A
Urine WBC (Reflex) 3-5
Ur Squamous Epith Cells 3-5
Urine Bacteria (Reflex) Many A
Microbiology Results
11/23/24 17:18 Influenza Types A & B (ZEINA) - Final
Nasal Swab Negative for Influenza A & B, NAAT
Negative results must be combined with clinical observations
and patient history.
Nucleic Acid Amplification test (NAAT)performed on the
[employer] platform.
[2024-11-23] MEDS: ARICEPT 10 MG PO (23:43)
[2024-11-23] MEDS: SINEMET 25-100 3 TABLET PO (23:43)
[2024-11-24] VITALS (12 sets, daily range): BP systolic 87–137; BP diastolic 58–79; BMI 30.1; BMI 30.9
[2024-11-24] MEDS: NSS 1000 IV ×3 (00:46→23:55)
--- NOTE | 2024-11-24 00:58 | PTCARENOTE ---
Addendum entered by Sona Macias RN 11/24/24 06:40:
MAPs remained above 65.
Original Note:
Received patient from the ED overnight. Afebrile but diaphoretic. Patient had an extra large explosive liquid diarrhea that filled the entire bed and floor. Abdomen firm round and distended with normal vital signs. FMS placed. Patient brought down
to CT scan for pelvis/abd study. Patient with audible inspiratory and expiratory wheezing on room air with no s/s of distress. Pulsox in the high 90s. call center director provider made aware and ordered duoneb tx.
[2024-11-24] MEDS: DUONEB 3 ML INH (01:07)
[2024-11-24] MEDS: MAXIPIME 1000 MG IV (05:25)
[2024-11-24] MEDS: STERILE WATER FOR INJECTION 10 ML IV (05:26)
[2024-11-24 05:50] LABS: Hematocrit 32.8 % (39.0-52.0); Hemoglobin 11.2 g/dL (13.0-18.0); Mean Corp Hgb Conc. 34.1 g/dL (33.0-37.0); Mean Corpuscular Hgb 31.8 pg (27.0-31.0); Mean Corpuscular Volume 93.2 fL (80.0-94.0); Mean Platelet Volume 11.1 fL (7.4-10.4); Platelet Count 187 10^3/uL (130-400); Red Blood Cell Count 3.52 10^6/uL (4.70-6.10); Red Cell Dist. Width 14.3 % (11.5-14.5); White Blood Cell Count 12.3 10^3/uL (4.8-10.8)
[2024-11-24 05:55] LABS: Vancomycin Random 15.2 ug/ml
[2024-11-24 06:17] LABS: NT-proBNP 5660 pg/ml
[2024-11-24 06:50] LABS: ALT (SGPT) 47 U/L (0-50); AST (SGOT) 97 U/L (17-59); Albumin 3.4 g/dl (3.5-5.0); Alkaline Phosphatase 82 U/L (38-126); Blood Urea Nitrogen 36 mg/dl (9-20); Calcium 8.3 mg/dl (8.4-10.2); Carbon Dioxide 14 mmol/L (22-30); Chloride 116 mmol/L (98-107); Estimated Creatinine Clearance 38 ml/min; Glucose 108 mg/dl (70-99); Magnesium 1.7 mg/dl (1.6-2.3); Sodium 144 mmol/L (135-145); Total Bilirubin 0.6 mg/dl (0.2-1.3); Total Protein 5.7 g/dl (6.3-8.2); eGFR 37.12
--- NOTE | 2024-11-24 07:48 | W.PN.HOSP.TC ---
Addendum entered and electronically signed by Lang Cassidy MD 11/24/24 21:11:
Attending Addendum-
I saw and evaluated the patient. I reviewed the resident�s note and agree with findings and plan as documented in the resident�s note. Sub: Seen with present. Only complains of feeling weak and fatigued. Per 'he looks so much better!'
Still with profuse watery diarrhea. Denies N/V abd pain fevers chills. Full 12 point ROS reviewed and negative except as documented Exam: Vitals reviewed in chart GEN-NAD, heart RRR 10/13 SM @ RUSB, lungs clear no W/R/R, abd soft LE no edema, Neuro
AAO x 2-3, Rectal- FMS in [place] brown watery stool, condom cath in place draining clear yellow urine
Plan:
#Severe Sepsis- viral gastroenteritis
- norovirus pos
- MAP > 65 hemodynamically stable
- transfer to tele
- Check Abd/Pelvis CT scan- possible enteritis
- blood cultures x 2 NGTD
- DC vancomycin and cefepime
- Follow closely
# Acute Kidney Injury
-resolving
-Continue IVFs
-repeat BMP in am
# TME
- from sepsis and dehydration
- resolving
# Metabolic Acidosis
- from ISELA and diarrhea
- cont IVF
- repeat BMP in am
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
-Stable
# Parkinson's Disease
-Continue Sinemet
# Hyperlipidemia
-Continue atorvastatin
# Alzheimer's Dementia
-Continue donepezil and memantine
# BPH
-Continue finasteride
# Alcohol Use Disorder
-Continue thiamine and folic acid
-cont CIWA
DVT proph: SV Heparin
Code Status: Full Code
Dispo from [facility] [place] with may need snf on dc
ACP
Patient consented to discuss, was with , time spent explanation of advance directives, changes in health status, patient�s health care wishes if the patient becomes unable to make health decisions, goals of care, code status, and prognosis,
confirmed Full Code would like to discuss further with family- 18 minutes
Time spent coordinating care, review of plan of care with resident, personally reviewed previous records in EMR, med rec, labs, radiology, d/w nursing, family total time documented is exclusive of any additional time listed that was spent in advance
care planning discussion -�55 minutes
Original Note:
Today's Communication/Plan
-
C/w IVF
CLD advance as tolerated
Assessment / Plan
Assessment / Plan
84 year old man presenting with complaints of AMS, vomiting and diarrhea
CT Abd/pel (oral only):
Examination overall limited by multiple factors, as detailed above.
Tiny nonobstructing right renal calculus.
No intestinal obstruction or free air. Fluid-filled loops of nondilated small bowel, nonspecific, cannot exclude enteritis. Rectal tube noted.
Likely coronary artery calcifications.
#Sepsis, likely secondary to viral gastroenteritis (norovirus)
- On admission hypotensive, febrile, leukocytosis, tachypneic, altered mental status from baseline
- given fluid bolus w/ sepsis dosing, not on pressors
- Stool Cx sent, Norovirus Positive
- Blood cx taken, pending
- Viral source, stopping Abx
- will observe restof stool studies and Blood cultures and re-initiate abx if indicated
- c/w IVF
#Infectious Gastroenteritis secondary to Norovirus
- On Fecal management system, yellow/brown liquid stool
- c/w IVF and supportive care measures
- CLD for now, can advance if tolerating
#ISELA,likely pre-renal
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
- C/w IVF
#Non Anion Gap Metabolic Acidosis
- likely secondary to pre-renal ISELA
- c/t monitor CMP
- c/w IVF
#Toxic Metabolic Encephalopathy?
- Patient awake, alert, oriented x3
- AMS if present has now resolved
#Alcohol Use Disorder
- no clinical signs of withdrawal at this time, no DTs
- c/w Thiamine/Folate supplementation
- WA protocol
#Parkinson's Disease - c/w Sinemet
#Dementia c/w donepezil, memantine
#HLD - c/w statin
Diet - CLD
DVT PPx - heparin SC
Code Status - Full Code
Anticipated Discharge: 24 - 48 hours
Subjective/Interval History
-
Date of Service: November 24, 2024
Feels well this morning. No acute abd pain, n/v. Has fecal management system draining liquid light brown stool, no blood.
Objective Data
-
Labs:
Laboratory Results
11/24/24
04:25
WBC 12.3 H
Hgb 11.2 L
Hct 32.8 L
Plt Count 187
Sodium 144
Potassium 4.0
Chloride 116 H
Carbon Dioxide 14 L*
BUN 36 H
Creatinine 1.8 H
Glucose 108 H
Calcium 8.3 L
Total Bilirubin 0.6
AST 97 H
ALT 47
Alkaline Phosphatase 82
Vital Signs:
Vital Signs
Temp Pulse Resp BP Pulse Ox
98.1 F 71 17 87/58 97
11/24/24 07:39 11/24/24 02:00 11/24/24 02:00 11/24/24 02:00 11/24/24 02:00
I&O
11/23/24 11/24/24 11/25/24
06:59 06:59 06:59
Output Total 250 / 250
Balance -250 / -250
Review of Systems
-
History Source: Patient
Constitutional: Reports No Symptoms
EENT: Reports No Symptoms Reported
Respiratory: Reports No Symptoms
Cardiac: Reports No Symptoms
Abdomen/GI: Reports No Symptoms
Genitourinary: Reports No Symptoms
Musculoskeletal: Reports No Symptoms
Neuro: Reports No Symptoms
Physical Exam
-
General: Well Developed, Well Nourished, No Apparent Distress and Comfortable
HEENT: Normocephalic, Atraumatic, Anicteric, [place] Conjunctivae, PERRLA, Nose Appears Normal and Ears Appear Normal; Negative Oxygen
Respiratory: Clear to Auscultation; Negative Wheezes, Rales or Rhonchi
Cardiac: Regular Rhythm, S1/S2, Murmur and Other (well healed incision from PM placement, non-tender, non erythematous, no drainage); Negative Rub or Calf Tenderness
Breast: N/A
GI: Soft, Nontender and Normal Bowel Sounds; Negative Nondistended
Genito-urinary: Garcia
Musculoskeletal: No Clubbing, No Cyanosis and No Edema
Skin: Warm, Dry and IV Access / Catheter Site
Neuro: Awake, Alert and Oriented
Psych: Calm
[2024-11-24] MEDS: THIAMINE INJECTION 200 MG IV ×2 (08:54→19:30)
[2024-11-24] MEDS: SINEMET 25-100 3 TABLET PO ×3 (08:54→19:30)
[2024-11-24] MEDS: NAMENDA 10 MG PO (08:55)
[2024-11-24] MEDS: PROSCAR 5 MG PO (08:55)
[2024-11-24] MEDS: FOLVITE 1 MG PO (08:55)
[2024-11-24] MEDS: HEPARIN 5000 UNITS SC ×2 (08:55→19:30)
--- NOTE | 2024-11-24 09:27 | PHA.VAN.FU ---
Vancomycin Assessment / Plan
- Assessment
Renal Function: Stable (2.3->1.8)
WBC's are: Trending Up (11.2->12.3)
In the past 24 hrs, patient has been: Febrile (103.9)
Concomitant Antimicrobials: Cefepime
- Assessment - Therapeutic Drug Monitoring
Random Level: 15.2 ~7hrs after 2G loading dose
- Dosing Plan
Dosing by Level: Re-dose today
Dosing Comments: Vanco 1250mg x1
- Monitoring Plan
Random Level: 11/25/24 0600
- Follow Up
Pharmacy will continue to follow.
Vancomycin Follow UP
- -
Patient Age: 84
Patient Sex: Male
Vancomycin Day #: 2
Indication: Other (SEPSIS)
Requesting Provider: GILMAR
Height / Weight:
Height 5 ft 11 in
Actual Weight 100.3 kg
Pertinent Past Medical History: ALCOHOL USE DISORDER
- Vital Signs / Lab Results
Temp Pulse Resp BP Pulse Ox
98.1 F 71 17 87/58 97
11/24/24 07:39 11/24/24 02:00 11/24/24 02:00 11/24/24 02:00 11/24/24 02:00
Lab Results - Hematology
11/23/24 11/24/24
17:16 04:25
WBC 11.2 H 12.3 H
Lab Results - Chemistry
11/23/24 11/24/24
17:16 04:25
BUN 36 H 36 H
Creatinine 2.3 H 1.8 H
Estimated Creat Clear 30 38
Albumin 4.8 3.4 L
11/23/24
17:18
Lactic Acid 1.7
Lab Results - Urine
11/23/24
17:16
Urine Nitrite (Reflex) Negative
Leukocyte Esterase Rfl 1+ A
Ur Squamous Epith Cells 3-5
Microbiology Results
11/23/24 23:51 C. difficile GDH Antigen & Toxins - Final
Feces/Stool Negative for toxigenic C.difficile
11/23/24 17:18 Influenza Types A & B (ZEINA) - Final
Nasal Swab Negative for Influenza A & B, NAAT
Negative results must be combined with clinical observations
and patient history.
Nucleic Acid Amplification test (NAAT)performed on the
[employer] platform.
Therapeutic Drug Monitoring
Random Vancomycin 15.2 ug/ml 11/24/24 04:25
[2024-11-24] MEDS: VANCOCIN 275 MG IV (11:03)
--- NOTE | 2024-11-24 11:35 | PTCARENOTE ---
Patient AAOx2, quiet, poor historian, forgetful. at bedside who states they both had stomach bug ~a week ago with vomiting and diarrhea. Patient norovirus +. MD made aware. BPs soft but stable. All other VSS. AV paced on monitor. Occasionally
having wheezing. PRN nebs ordered. RA, sats 97%. Following LUE restrictions d/t pacemaker. Abdomen distended. FMS with large amount of liquid brown stool. Patient with no complaints. Downgraded to medsur. Will closely monitor.
--- NOTE | 2024-11-24 17:25 | CM ---
Patient from [facility] with Hx Parkinsons, dementia with Dx Sepsis, likely secondary to viral gastroenteritis (norovirus). Room air. Reg diet.
Spoke with patient's Lotus;
the patient resides with his in an aparmtment at [facility].
He is alert both oriented and forgetful/confused at times.
The patient is independent in ADLs like showering and making meals, and is able to help with chores.
He ambulates independently mostly without using his RW.
He had several falls prior to getting his recent pacemaker and none since then.
DME - RW, S[facility]
No VN or SNF.
The patient goes to [facility] for Parkinsons patients, and will be able to resume the end of November (on hold after pacemaker insertion).
PCP - Roberto Muhammad
Pharmacy - [facility]
Offered VN and declined.
No CM d/c needs identified.
Plan home.
[2024-11-24] MEDS: ARICEPT 10 MG PO (19:30)
[2024-11-24] MEDS: DESENEX/MITRAZOL/ZEASORB TOPICAL (23:55)
[2024-11-25] VITALS (18 sets, daily range): BP systolic 114–161; BP diastolic 69–92; PULSE 60; O2SAT 98; BMI 30.8
--- NOTE | 2024-11-25 06:12 | PTCARENOTE ---
No acute events overnight. Continues with large amounts of liquid stool. FMS in place and put out over 1 liter. IVF infusing.
--- NOTE | 2024-11-25 07:52 | W.PN.HOSP.TC ---
Addendum entered and electronically signed by Lang Cassidy MD 11/25/24 19:09:
Attending Addendum-
I saw and evaluated the patient. I reviewed the resident�s note and agree with findings and plan as documented in the resident�s note. Sub: Seen with present. Per 'he looks better!' Still with profuse watery diarrhea. Denies N/V abd pain
fevers chills. Patient poor historian due to dementia. Full 12 point ROS reviewed and negative except as documented Exam: Vitals reviewed in chart GEN-NAD, heart RRR 10/13 SM @ RUSB, lungs clear no W/R/R, abd soft LE no edema, Neuro AAO x 2-3,
Rectal- FMS in place brown watery stool, condom cath in place draining clear yellow urine Neuro AAO x 2
Plan:
#Severe Sepsis- viral gastroenteritis
- norovirus
- transferred to med surg (imu hold)
- blood cultures x 2 NGTD
- DC'd abx
- Follow closely- high risk for dehydration with continued diarrhea
# Acute Kidney Injury
-resolved
-Continue IVFs
-repeat BMP in am
# TME
- from sepsis and dehydration
- resolving
# Metabolic Acidosis
- from ISELA and diarrhea
- cont IVF
- resolving
- repeat BMP in am
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
-Stable
# Parkinson's Disease
-Continue Sinemet
# Hyperlipidemia
-Continue atorvastatin
# Alzheimer's Dementia
-Continue donepezil and memantine
# BPH
-Continue finasteride
# Alcohol Use Disorder
-Continue thiamine and folic acid
-cont CIWA
DVT proph: SV Heparin
Code Status: Full Code
Dispo from [facility] [place] refusing SNF- possible DC over weekend
Time spent coordinating care, review of plan of care with resident, personally reviewed records in EMR, med rec, consults, notes, labs, radiology, d/w nursing and CM� 51 mins
Original Note:
Today's Communication/Plan
-
C/w FMS, IVF
Observe pending stool cultures
Assessment / Plan
Assessment / Plan
84 year old man presenting with complaints of AMS, vomiting and diarrhea
CT Abd/pel (oral only):
Examination overall limited by multiple factors, as detailed above.
Tiny nonobstructing right renal calculus.
No intestinal obstruction or free air. Fluid-filled loops of nondilated small bowel, nonspecific, cannot exclude enteritis. Rectal tube noted.
Likely coronary artery calcifications.
#Sepsis, likely secondary to viral gastroenteritis (norovirus)
- On admission hypotensive, febrile, leukocytosis, tachypneic, altered mental status from baseline
- given fluid bolus w/ sepsis dosing, not on pressors
- Stool Cx sent, Norovirus Positive, C Diff. negative.
- Blood cx taken, NGTD
- Viral source, stopping Abx
- will observe rest of stool studies and Blood cultures and re-initiate abx if indicated
- c/w IVF
- still having liquid bowel movements, 2L by FMS
- will c/t monitor for diarrhea cessation
#Infectious Gastroenteritis secondary to Norovirus
- On Fecal management system, yellow/brown liquid stool
- c/w IVF and supportive care measures
- Advanced to regular diet, tolerating well
#ISELA,likely pre-renal
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
- C/w IVF
#Non Anion Gap Metabolic Acidosis
- likely secondary to pre-renal IESLA
- c/t monitor CMP
- c/w IVF
#Toxic Metabolic Encephalopathy?
- Patient awake, alert, oriented x3
- AMS if present has now resolved
#Alcohol Use Disorder
- no clinical signs of withdrawal at this time, no DTs
- c/w Thiamine/Folate supplementation
- CIWA protocol
#Parkinson's Disease - c/w Sinemet
#Dementia c/w donepezil, memantine
#HLD - c/w statin
Diet - CLD
DVT PPx - heparin SC
Code Status - Full Code
Anticipated Discharge: 24 - 48 hours
Subjective/Interval History
-
Date of Service: November 25, 2024
Feeling well this morning. no new n/v, fevers or chills. He has put out 2L of liquid brown stool overnight.
Objective Data
-
Labs:
Laboratory Results
11/25/24
07:30
WBC Pending
Hgb Pending
Hct Pending
Plt Count Pending
Sodium Pending
Potassium Pending
Chloride Pending
Carbon Dioxide Pending
BUN Pending
Creatinine Pending
Glucose Pending
Calcium Pending
Total Bilirubin Pending
AST Pending
ALT Pending
Alkaline Phosphatase Pending
Vital Signs:
Vital Signs
Temp Pulse Resp BP Pulse Ox
98.1 F 60 20 152/89 97
11/25/24 05:23 11/25/24 03:04 11/25/24 03:04 11/25/24 06:00 11/24/24 20:48
I&O
11/24/24 11/25/24 11/26/24
06:59 06:59 06:59
Intake Total 1770 / 1770
Output Total 250 / 250 2100 / 2100
Balance -250 / -250 -330 / -330
Review of Systems
-
History Source: Patient
Constitutional: Reports No Symptoms
EENT: Reports No Symptoms Reported
Respiratory: Reports No Symptoms
Cardiac: Reports No Symptoms
Abdomen/GI: Reports No Symptoms
Breast: Reports N/A
Genitourinary: Reports No Symptoms
Musculoskeletal: Reports No Symptoms
Skin: Reports No Symptoms
Physical Exam
-
General: Well Developed, Well Nourished, No Apparent Distress and Comfortable
HEENT: Normocephalic, Atraumatic, Moist Mucous Membranes, Anicteric, [place] Conjunctivae, Nose Appears Normal and Ears Appear Normal
Respiratory: Wheezes and Other (Tachypneic); Negative Rales or Rhonchi
Cardiac: Regular Rhythm and S1/S2; Negative Murmur or Rub
Breast: N/A
GI: Soft, Nontender and Nondistended; Negative Normal Bowel Sounds (Hyperactive bowel sounds)
Genito-urinary: Clear Urine
Musculoskeletal: No Clubbing, No Cyanosis and No Edema
Skin: Warm, Dry and IV Access / Catheter Site
Neuro: Awake and Alert
[2024-11-25] MEDS: SINEMET 25-100 3 TABLET PO ×3 (08:09→22:14)
[2024-11-25] MEDS: NAMENDA 10 MG PO (08:09)
[2024-11-25] MEDS: PROSCAR 5 MG PO (08:13)
[2024-11-25] MEDS: HEPARIN 5000 UNITS SC ×2 (08:13→20:06)
[2024-11-25] MEDS: FOLVITE 1 MG PO (08:13)
[2024-11-25] MEDS: DESENEX/MITRAZOL/ZEASORB 1 APPLIC TOPICAL ×2 (08:13→22:14)
[2024-11-25] MEDS: THIAMINE INJECTION 200 MG IV ×2 (08:13→20:07)
[2024-11-25] MEDS: NSS 1000 IV (08:14)
[2024-11-25] MEDS: DUONEB 3 ML INH (08:22)
[2024-11-25 09:01] LABS: % Basophils 0.3 % (0-2); % Eosinophils 0.4 % (0-6); % Immature Granulocytes 0.1 % (0-0.5); % Lymphocytes 22.2 % (20.5-51.1); % Monocytes 10.2 % (1.7-9.3); % Neutrophils 66.8 % (42.2-75.2); Absolute Lymphocytes 1.5 10^3/uL (1.2-3.4); Absolute Monocytes 0.7 10^3/uL (0.1-0.6); Absolute Neutrophils 4.6 10^3/uL (1.4-6.5); Hematocrit 36.6 % (39.0-52.0); Hemoglobin 11.9 g/dL (13.0-18.0); Mean Corp Hgb Conc. 32.5 g/dL (33.0-37.0); Mean Corpuscular Hgb 30.7 pg (27.0-31.0); Mean Corpuscular Volume 94.6 fL (80.0-94.0); Mean Platelet Volume 10.9 fL (7.4-10.4); Nucleated Red Blood Cells % 0 % (-); Platelet Count 185 10^3/uL (130-400); Red Blood Cell Count 3.87 10^6/uL (4.70-6.10); Red Cell Dist. Width 14.6 % (11.5-14.5)
[2024-11-25 09:33] LABS: ALT (SGPT) 31 U/L (0-50); AST (SGOT) 94 U/L (17-59); Albumin 3.4 g/dl (3.5-5.0); Alkaline Phosphatase 85 U/L (38-126); Blood Urea Nitrogen 19 mg/dl (9-20); Calcium 8.6 mg/dl (8.4-10.2); Carbon Dioxide 16 mmol/L (22-30); Chloride 118 mmol/L (98-107); Estimated Creatinine Clearance 69 ml/min; Glucose 92 mg/dl (70-99); Potassium 4.2 mmol/L (3.5-5.1); Sodium 143 mmol/L (135-145); Total Bilirubin 0.5 mg/dl (0.2-1.3); Total Protein 5.8 g/dl (6.3-8.2); eGFR > 60.00
--- NOTE | 2024-11-25 14:45 | PTCARENOTE ---
Patient initially very confused with some agitation this morning requiring frequent reorienting and a call to his for him to speak with, patient calmed down and cooperative once his came in. still at bedside. Patient AAOx2, confused.
reports patient drinks 1 small tumbler of vodka on ice a night. Educated her and patient on ongoing MSAS protocol assessments. Bed alarm on for safety. VSS. RA. MURILLO. FMS patent with watery brown stool in bag. Tolerating diet. Awaiting medsurg
bed. Will continue to closely monitor patient.
[2024-11-25] MEDS: OCUVITE SOFTGEL 1 CAP PO (16:49)
[2024-11-25] MEDS: ARICEPT 10 MG PO (22:14)
--- NOTE | 2024-11-26 00:33 | PTCARENOTE ---
Pt received from previous RN. Pt awake and sitting in chair watching TV. confused to time. MSAS preformed as ordered. see intervention on worklist. VSS. Hs oral care preformed, bathing cloths used for hs hygiene. FMS in use. Call light in reach.
Assessment as documented.
[2024-11-26] MEDS: NSS 1000 IV (02:21)
[2024-11-26 02:28] VITALS: BMI 30.7
[2024-11-26] MEDS: DUONEB 3 ML INH (05:47)
[2024-11-26 05:53] LABS: % Basophils 0.2 % (0-2); % Immature Granulocytes 0.4 % (0-0.5); % Monocytes 12.8 % (1.7-9.3); % Neutrophils 63.6 % (42.2-75.2); Absolute Eosinophils 0.1 10^3/uL (0-0.7); Absolute Lymphocytes 1.1 10^3/uL (1.2-3.4); Absolute Monocytes 0.7 10^3/uL (0.1-0.6); Absolute Neutrophils 3.2 10^3/uL (1.4-6.5); Hematocrit 33.7 % (39.0-52.0); Hemoglobin 11.8 g/dL (13.0-18.0); Mean Corpuscular Hgb 32.6 pg (27.0-31.0); Mean Corpuscular Volume 93.1 fL (80.0-94.0); Mean Platelet Volume 11.5 fL (7.4-10.4); Nucleated Red Blood Cells % 0 % (-); Platelet Count 169 10^3/uL (130-400); Red Blood Cell Count 3.62 10^6/uL (4.70-6.10); Red Cell Dist. Width 14.3 % (11.5-14.5); White Blood Cell Count 5.1 10^3/uL (4.8-10.8)
[2024-11-26 06:11] LABS: ALT (SGPT) 15 U/L (0-50); AST (SGOT) 62 U/L (17-59); Albumin 3.2 g/dl (3.5-5.0); Alkaline Phosphatase 87 U/L (38-126); Blood Urea Nitrogen 12 mg/dl (9-20); Calcium 8.4 mg/dl (8.4-10.2); Carbon Dioxide 18 mmol/L (22-30); Chloride 118 mmol/L (98-107); Estimated Creatinine Clearance 76 ml/min; Glucose 91 mg/dl (70-99); Potassium 3.9 mmol/L (3.5-5.1); Sodium 145 mmol/L (135-145); Total Bilirubin 0.5 mg/dl (0.2-1.3); Total Protein 5.6 g/dl (6.3-8.2); eGFR > 60.00
[2024-11-26 07:40] VITALS: BP 140/72
[2024-11-26] MEDS: FOLVITE 1 MG PO (07:58)
[2024-11-26] MEDS: PROSCAR 5 MG PO (07:58)
[2024-11-26] MEDS: OCUVITE SOFTGEL 1 CAP PO (07:58)
[2024-11-26] MEDS: SINEMET 25-100 3 TABLET PO ×3 (07:58→21:48)
[2024-11-26] MEDS: NAMENDA 10 MG PO (07:58)
[2024-11-26] MEDS: DESENEX/MITRAZOL/ZEASORB 1 APPLIC TOPICAL ×2 (08:00→21:43)
[2024-11-26] MEDS: THIAMINE INJECTION 200 MG IV ×2 (08:01→21:48)
[2024-11-26] MEDS: HEPARIN 5000 UNITS SC ×2 (08:01→21:44)
--- NOTE | 2024-11-26 09:41 | W.PN.HOSP.TC ---
Today's Communication/Plan
-
removal fecal managment tube
oral bicarb
stop IVF
encourage oral intake
f/u labs
Assessment / Plan
Assessment / Plan
#Severe Sepsis- viral gastroenteritis
- norovirus positive. cdiff neg.
- blood cultures x 2 NGTD
- DC'd abx
- Follow closely- high risk for dehydration with continued diarrhea
# Acute Kidney Injury
-resolved
-Continue IVFs
-cr remains stable
# TME - improved
- from sepsis and dehydration
# Metabolic Acidosis - ongoing
- from ISELA and diarrhea
- slowly improving. provide oral bicarb pills.
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
-Stable
# Parkinson's Disease
-Continue Sinemet
# Hyperlipidemia
-Continue atorvastatin
# Alzheimer's Dementia
-Continue donepezil and memantine
# BPH
-Continue finasteride
# Alcohol Use Disorder
-Continue thiamine and folic acid
-cont CIWA
DVT proph: SV Heparin
Code Status: Full Code
Dispo from [facility] [place] refusing SNF- possible DC over weekend
Anticipated Discharge: 24 - 48 hours
Subjective/Interval History
-
Date of Service: November 26, 2024
patient resting comfortably in bed
no abd pain/nausea/vomiting
still have stool management system in with liquid stool
Objective Data
-
Labs:
Laboratory Results
11/26/24
05:07
WBC 5.1
Hgb 11.8 L
Hct 33.7 L
Plt Count 169
Sodium 145
Potassium 3.9
Chloride 118 H
Carbon Dioxide 18 L
BUN 12
Creatinine 0.9
Glucose 91
Calcium 8.4
Total Bilirubin 0.5
AST 62 H
ALT 15
Alkaline Phosphatase 87
Vital Signs:
Vital Signs
Temp Pulse Resp BP Pulse Ox
98.3 F 65 20 140/72 97
11/26/24 07:40 11/26/24 07:40 11/26/24 07:40 11/26/24 07:40 11/26/24 07:40
I&O
11/25/24 11/26/24 11/27/24
06:59 06:59 06:59
Intake Total 1770 / 1770 1000 / 1120 120 / 120
Output Total 2099 / 2099 1650 / 2450 800 / 800
Balance -330 / -330 -650 / -1330 -680 / -680
Review of Systems
-
Respiratory: Reports No Symptoms
Cardiac: Reports No Symptoms
Abdomen/GI: Reports Abdominal Pain; Denies Diarrhea
Physical Exam
-
General: Comfortable
HEENT: Negative Oxygen
Respiratory: Wheezes and Rhonchi
GI: Soft, Nontender and Nondistended
Genito-urinary: Clear Urine and Other (stool managment bag in place - clemons brown liquid stool)
Musculoskeletal: No Edema
Neuro: Awake, Alert and No Motor Deficits
[2024-11-26] MEDS: SODIUM BICARBONATE 650 MG PO ×2 (11:51→21:47)
--- NOTE | 2024-11-26 12:29 | CM ---
prefers that patient go to SNF when discharged; preference is [facility]; referral sent via [facility]
Plan: Discharge to SNF pending bed availability
--- NOTE | 2024-11-26 14:25 | PTCARENOTE ---
Patient is oriented x2, RN/PCT provided most care- feeding/toileting/turns/hygiene. PT's is at bedside, asked about placement post discharge. RN relayed to patient that PT notes are recommending rehab facility per assistance needs. is
upset at this, wants to bring him home to independent living. RN reviewed patients current care needs and medication review, offered reassurance that rehab would be a good place for her to be at he needs 1-2 people to assist with ADL's right
now. seemed to understand after RN explained care needs. PT is continent of urine at times, still has large volume liquid bowel movement via FMS. Skin care performed. Pt gown and linens changed. See MAR/flowsheets for further care details.
[2024-11-26 15:44] VITALS: BP 139/70
--- NOTE | 2024-11-26 16:08 | PTCARENOTE ---
Called report to receiving floor RN, pt transporting with at bedside, pt Desenex powder in patient specific bag next to patient on stretcher, vitals within normal limits, see mar/flowsheets for further care details.
[2024-11-26] MEDS: ARICEPT 10 MG PO (21:47)
[2024-11-26 23:00] VITALS: BP 126/59
[2024-11-27] MEDS: TYLENOL 650 MG PO (04:06)
[2024-11-27 06:00] VITALS: BMI 30.2
[2024-11-27 07:05] VITALS: BP 150/83
[2024-11-27 07:15] LABS: % Basophils 0.4 % (0-2); % Eosinophils 1.4 % (0-6); % Immature Granulocytes 0.2 % (0-0.5); % Lymphocytes 20.3 % (20.5-51.1); % Neutrophils 66.7 % (42.2-75.2); Absolute Eosinophils 0.1 10^3/uL (0-0.7); Absolute Monocytes 0.6 10^3/uL (0.1-0.6); Absolute Neutrophils 3.4 10^3/uL (1.4-6.5); Hematocrit 31.5 % (39.0-52.0); Hemoglobin 10.9 g/dL (13.0-18.0); Mean Corp Hgb Conc. 34.6 g/dL (33.0-37.0); Mean Corpuscular Hgb 31.8 pg (27.0-31.0); Mean Corpuscular Volume 91.8 fL (80.0-94.0); Mean Platelet Volume 10.4 fL (7.4-10.4); Nucleated Red Blood Cells % 0 % (-); Platelet Count 176 10^3/uL (130-400); Red Blood Cell Count 3.43 10^6/uL (4.70-6.10); White Blood Cell Count 5.1 10^3/uL (4.8-10.8)
[2024-11-27 07:43] LABS: ALT (SGPT) 15 U/L (0-50); AST (SGOT) 43 U/L (17-59); Albumin 3.2 g/dl (3.5-5.0); Alkaline Phosphatase 89 U/L (38-126); Blood Urea Nitrogen 8 mg/dl (9-20); Calcium 8.4 mg/dl (8.4-10.2); Carbon Dioxide 20 mmol/L (22-30); Chloride 116 mmol/L (98-107); Estimated Creatinine Clearance 85 ml/min; Glucose 98 mg/dl (70-99); Potassium 3.6 mmol/L (3.5-5.1); Sodium 145 mmol/L (135-145); Total Bilirubin 0.7 mg/dl (0.2-1.3); Total Protein 5.5 g/dl (6.3-8.2); eGFR > 60.00
[2024-11-27] MEDS: SODIUM BICARBONATE 650 MG PO ×2 (09:08→20:02)
[2024-11-27] MEDS: VITAMIN B1 100 MG PO ×2 (09:08→20:02)
[2024-11-27] MEDS: OCUVITE SOFTGEL 1 CAP PO (09:08)
[2024-11-27] MEDS: NAMENDA 10 MG PO (09:08)
[2024-11-27] MEDS: SINEMET 25-100 3 TABLET PO ×3 (09:08→21:26)
[2024-11-27] MEDS: FOLVITE 1 MG PO (09:08)
[2024-11-27] MEDS: PROSCAR 5 MG PO (09:09)
[2024-11-27] MEDS: HEPARIN 5000 UNITS SC ×2 (09:09→20:02)
[2024-11-27] MEDS: DESENEX/MITRAZOL/ZEASORB 1 APPLIC TOPICAL ×2 (09:10→20:01)
--- NOTE | 2024-11-27 12:38 | W.PN.HOSP.TC ---
Today's Communication/Plan
-
waiting snf placement
remove fecal managment tube
Assessment / Plan
Assessment / Plan
#Severe Sepsis- viral gastroenteritis
- norovirus positive. C diff neg.
- blood cultures x 2 NGTD
- DC'd abx
- Follow closely- high risk for dehydration with continued diarrhea
# Acute Kidney Injury
-resolved
-Continue IVFs
-cr remains stable
# TME - improved
- from sepsis and dehydration
# Metabolic Acidosis - ongoing
- from ISELA and diarrhea
- slowly improving. provide oral bicarb pills.
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
-Stable
# Parkinson's Disease
-Continue Sinemet
# Hyperlipidemia
-Continue atorvastatin
# Alzheimer's Dementia
-Continue donepezil and memantine
# BPH
-Continue finasteride
# Alcohol Use Disorder
-Continue thiamine and folic acid
-cont CIWA
DVT proph: SV Heparin
Code Status: Full Code
Anticipated Discharge: Within 24 hours
Subjective/Interval History
-
Date of Service: November 27, 2024
still have some diarrhea
mentation better
no n/v/f
Objective Data
-
Labs:
Laboratory Results
11/27/24
07:00
WBC 5.1
Hgb 10.9 L
Hct 31.5 L
Plt Count 176
Sodium 145
Potassium 3.6
Chloride 116 H
Carbon Dioxide 20 L
BUN 8 L
Creatinine 0.8
Glucose 98
Calcium 8.4
Total Bilirubin 0.7
AST 43
ALT 15
Alkaline Phosphatase 89
Vital Signs:
Vital Signs
Temp Pulse Resp BP Pulse Ox
97.6 F 61 20 150/83 96
11/27/24 07:05 11/27/24 07:05 11/27/24 07:05 11/27/24 07:05 11/27/24 07:05
I&O
11/26/24 11/27/24 11/28/24
06:59 06:59 06:59
Intake Total 1000 / 1120 1150 / 1150
Output Total 1650 / 2450 1300 / 1300
Balance -650 / -1330 -150 / -150
Review of Systems
-
Respiratory: Reports No Symptoms
Cardiac: Reports No Symptoms
Abdomen/GI: Reports No Symptoms
Physical Exam
-
General: Comfortable
HEENT: Negative Oxygen
Respiratory: Wheezes and Rhonchi
GI: Soft, Nontender and Nondistended
Genito-urinary: Garcia (clear urine) and Other (stool managment bag in place - clemons brown liquid stool)
Musculoskeletal: No Edema
Neuro: Awake, Alert and No Motor Deficits
[2024-11-27 15:05] VITALS: BP 145/74
[2024-11-27 16:43] LABS: Glucose - Point of Care 112 mg/dl (70-99)
[2024-11-27] MEDS: ARICEPT 10 MG PO (21:27)
[2024-11-27 23:00] VITALS: BP 160/79
[2024-11-28 07:05] VITALS: BP 106/82
--- NOTE | 2024-11-28 08:00 | W.PN.HOSP.TC ---
Addendum entered and electronically signed by Osiel Klein MD 11/28/24 15:20:
Sepsis, secondary to viral gastroenteritis related to norovirus. Supportive care was provided. Improved symptomatology now with formed stools and no further diarrheal movements.
ISELA resolved
Toxic metabolic encephalopathy resolved
Remains medically clear for discharge to [facility] when bed available/pending authorization.
Original Note:
Today's Communication/Plan
-
Stable for D/c pending authorization for [facility]
Assessment / Plan
Assessment / Plan
84 year old man presenting with complaints of AMS, vomiting and diarrhea
CT Abd/pel (oral only):
Examination overall limited by multiple factors, as detailed above.
Tiny nonobstructing right renal calculus.
No intestinal obstruction or free air. Fluid-filled loops of nondilated small bowel, nonspecific, cannot exclude enteritis. Rectal tube noted.
Likely coronary artery calcifications.
#Sepsis, likely secondary to viral gastroenteritis (norovirus)
- On admission hypotensive, febrile, leukocytosis, tachypneic, altered mental status from baseline
- given fluid bolus w/ sepsis dosing, not on pressors
- Norovirus Positive, C Diff. negative.
- Blood cx taken, NGx48 hours
- Viral source, stopping Abx
- will observe rest of stool studies and Blood cultures and re-initiate abx if indicated
- c/w IVF
- Diarrhea resolved
- Pending authorization for [facility]
#Infectious Gastroenteritis secondary to Norovirus (resolved)
- Diarrhea/n/v resolved
- c/w IVF and supportive care measures
- Advanced to regular diet, tolerating well
#ISELA,likely pre-renal (resolved)
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
- C/w IVF
#Non Anion Gap Metabolic Acidosis (resolved)
- likely secondary to pre-renal ISELA
- c/t monitor CMP
- c/w IVF
#Toxic Metabolic Encephalopathy (resolved)
- Patient remains awake, alert, oriented x3
#Alcohol Use Disorder
- no clinical signs of withdrawal at this time, no DTs
- c/w Thiamine/Folate supplementation
- CIWA protocol
#Parkinson's Disease - c/w Sinemet
#Dementia c/w donepezil, memantine
#HLD - c/w statin
Diet - CLD
DVT PPx - heparin SC
Code Status - Full Code
Anticipated Discharge: Within 24 hours
Subjective/Interval History
-
Date of Service: November 28, 2024
Tolerating diet and feeling well. No new abd pain, n,v,d. Last BM was soft, brown, large, painless, bloodless. No new fevers or chills.
Objective Data
-
Labs:
Laboratory Results
11/28/24 11/28/24
06:57 06:58
WBC Pending
Hgb Pending
Hct Pending
Plt Count Pending
Sodium Pending
Potassium Pending
Chloride Pending
Carbon Dioxide Pending
BUN Pending
Creatinine Pending
Glucose Pending
Calcium Pending
Total Bilirubin Pending
AST Pending
ALT Pending
Alkaline Phosphatase Pending
Vital Signs:
Vital Signs
Temp Pulse Resp BP Pulse Ox
97.8 F 62 17 106/82 97
11/28/24 07:05 11/28/24 07:05 11/28/24 07:05 11/28/24 07:05 11/28/24 07:05
I&O
11/27/24 11/28/24 11/29/24
06:59 06:59 06:59
Intake Total 1150 / 1150 1620 / 1620
Output Total 1300 / 1300 850 / 850
Balance -150 / -150 770 / 770
Review of Systems
-
Unable to obtain full review of systems at this time due to: Dementia
History Source: Patient
Constitutional: Reports No Symptoms
EENT: Reports No Symptoms Reported
Respiratory: Reports No Symptoms
Cardiac: Reports No Symptoms
Abdomen/GI: Reports No Symptoms
Breast: Reports N/A
Genitourinary: Reports No Symptoms
Musculoskeletal: Reports No Symptoms
Physical Exam
-
General: Well Developed, Well Nourished, No Apparent Distress and Comfortable
HEENT: Normocephalic, Atraumatic, Moist Mucous Membranes, Anicteric, [place] Conjunctivae, Nose Appears Normal and Ears Appear Normal
Respiratory: Clear to Auscultation; Negative Wheezes, Rales or Rhonchi
Cardiac: Regular Rhythm and S1/S2; Negative Murmur or Rub
GI: Soft, Nontender, Nondistended and Normal Bowel Sounds
Genito-urinary: No Costovertebral Tender
Musculoskeletal: No Clubbing, No Cyanosis and No Edema
Skin: Warm, Dry and IV Access / Catheter Site
Neuro: Awake, Alert and Oriented
Psych: Calm
[2024-11-28 08:25] LABS: Hematocrit 33.1 % (39.0-52.0); Hemoglobin 11.7 g/dL (13.0-18.0); Mean Corp Hgb Conc. 35.3 g/dL (33.0-37.0); Mean Corpuscular Hgb 31.6 pg (27.0-31.0); Mean Corpuscular Volume 89.5 fL (80.0-94.0); Mean Platelet Volume 11.5 fL (7.4-10.4); Platelet Count 186 10^3/uL (130-400); Red Cell Dist. Width 13.8 % (11.5-14.5); White Blood Cell Count 3.5 10^3/uL (4.8-10.8)
[2024-11-28 08:49] LABS: % Basophils 0.6 % (0-2); % Eosinophils 4.3 % (0-6); % Lymphocytes 39.8 % (20.5-51.1); % Monocytes 12.6 % (1.7-9.3); % Neutrophils 42.7 % (42.2-75.2); Absolute Eosinophils 0.2 10^3/uL (0-0.7); Absolute Lymphocytes 1.4 10^3/uL (1.2-3.4); Absolute Monocytes 0.4 10^3/uL (0.1-0.6); Absolute Neutrophils 1.5 10^3/uL (1.4-6.5); Nucleated Red Blood Cells % 0 % (-)
[2024-11-28 08:53] LABS: ALT (SGPT) 29 U/L (0-50); AST (SGOT) 59 U/L (17-59); Albumin 3.6 g/dl (3.5-5.0); Alkaline Phosphatase 106 U/L (38-126); Blood Urea Nitrogen 9 mg/dl (9-20); Calcium 8.9 mg/dl (8.4-10.2); Carbon Dioxide 24 mmol/L (22-30); Chloride 111 mmol/L (98-107); Estimated Creatinine Clearance 87 ml/min; Glucose 102 mg/dl (70-99); Potassium 3.5 mmol/L (3.5-5.1); Sodium 143 mmol/L (135-145); Total Bilirubin 0.9 mg/dl (0.2-1.3); Total Protein 5.9 g/dl (6.3-8.2); eGFR > 60.00
[2024-11-28] MEDS: HEPARIN 5000 UNITS SC ×2 (09:39→19:12)
[2024-11-28] MEDS: FOLVITE 1 MG PO (09:39)
[2024-11-28] MEDS: PROSCAR 5 MG PO (09:40)
[2024-11-28] MEDS: VITAMIN B1 100 MG PO ×2 (09:40→19:12)
[2024-11-28] MEDS: SINEMET 25-100 3 TABLET PO ×3 (09:40→21:08)
[2024-11-28] MEDS: NAMENDA 10 MG PO (09:40)
[2024-11-28] MEDS: OCUVITE SOFTGEL 1 CAP PO (09:40)
[2024-11-28] MEDS: DESENEX/MITRAZOL/ZEASORB 1 APPLIC TOPICAL ×2 (09:47→19:12)
--- NOTE | 2024-11-28 10:30 | PTCARENOTE ---
Pt wheezing 97%RA. No respiratory complaints. Duoneb order . Dr Klein notified.
--- NOTE | 2024-11-28 13:48 | CM ---
Patient seen at bedside with
spoke with Yin from [facility] & [facility] updated
No bed avail today
will need COVID test prior to dc
PLAN: [facility], pending bed availability
[2024-11-28] MEDS: DUONEB 3 ML INH (13:49)
[2024-11-28 15:03] VITALS: BP 154/82
[2024-11-28 15:18] VITALS: BP 121/82; BP 126/75; PULSE 60; O2SAT 98
[2024-11-28] MEDS: ARICEPT 10 MG PO (21:08)
[2024-11-28 23:11] VITALS: BP 137/72
[2024-11-29 04:13] VITALS: BMI 30.1
[2024-11-29 07:03] VITALS: BP 165/93
--- NOTE | 2024-11-29 07:03 | W.PN.HOSP.TC ---
Addendum entered and electronically signed by Osiel Klein MD 11/29/24 14:17:
DC to SNF when Covid return and bed available at [facility]
Original Note:
Today's Communication/Plan
-
d/c to [facility] [place] pending placement
Assessment / Plan
Assessment / Plan
84 year old man presenting with complaints of AMS, vomiting and diarrhea
#Sepsis, likely secondary to viral gastroenteritis (norovirus)
- On admission hypotensive, febrile, leukocytosis, tachypneic, altered mental status from baseline
- given fluid bolus w/ sepsis dosing, not on pressors
- Norovirus Positive, C Diff. negative.
- Blood cx taken, NGx48 hours
- Viral source, stopping Abx
- will observe rest of stool studies and Blood cultures and re-initiate abx if indicated
- c/w IVF
- Diarrhea resolved
- Pending authorization for SNF [facility] @ [facility] [place]
#Infectious Gastroenteritis secondary to Norovirus (resolved)
- Diarrhea/n/v resolved
- c/w IVF and supportive care measures
- Advanced to regular diet, tolerating well
#ISELA,likely pre-renal (resolved)
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
- C/w IVF
#Non Anion Gap Metabolic Acidosis (resolved)
- likely secondary to pre-renal ISELA
- c/t monitor CMP
- c/w IVF
#Toxic Metabolic Encephalopathy (resolved)
- Patient remains awake, alert, oriented x3
#Alcohol Use Disorder
- no clinical signs of withdrawal at this time, no DTs
- c/w Thiamine/Folate supplementation
- CIWA protocol
#Parkinson's Disease - c/w Sinemet
#Dementia c/w donepezil, memantine
#HLD - c/w statin
Regular diet
DVT PPx - heparin SC
Code Status - Full Code
Anticipated Discharge: Within 24 hours
Subjective/Interval History
-
Date of Service: November 29, 2024
Objective Data
-
Labs:
Laboratory Results
11/29/24
06:51
WBC Pending
Hgb Pending
Hct Pending
Plt Count Pending
Sodium Pending
Potassium Pending
Chloride Pending
Carbon Dioxide Pending
BUN Pending
Creatinine Pending
Glucose Pending
Calcium Pending
Total Bilirubin Pending
AST Pending
ALT Pending
Alkaline Phosphatase Pending
Vital Signs:
Vital Signs
Temp Pulse Resp BP Pulse Ox
97.9 F 64 16 137/72 96
11/28/24 23:11 11/28/24 23:11 11/28/24 23:11 11/28/24 23:11 11/28/24 23:11
I&O
11/28/24 11/29/24 11/30/24
06:59 06:59 06:59
Intake Total 1620 / 1620 840 / 840
Output Total 850 / 850 400 / 400
Balance 770 / 770 440 / 440
Review of Systems
-
Unable to obtain full review of systems at this time due to: Dementia
History Source: Patient
Constitutional: Reports No Symptoms
EENT: Reports No Symptoms Reported
Respiratory: Reports No Symptoms
Cardiac: Reports No Symptoms
Abdomen/GI: Reports No Symptoms
Genitourinary: Reports No Symptoms
Musculoskeletal: Reports No Symptoms
Neuro: Reports No Symptoms
Physical Exam
-
General: Well Developed, Well Nourished, No Apparent Distress and Comfortable
HEENT: Normocephalic, Atraumatic, Moist Mucous Membranes, PERRLA, Nose Appears Normal and Ears Appear Normal
Respiratory: Wheezes; Negative Rales or Rhonchi
Cardiac: Regular Rhythm and S1/S2; Negative Murmur or Rub
GI: Soft, Nontender, Nondistended and Normal Bowel Sounds
Genito-urinary: No Costovertebral Tender
Musculoskeletal: No Clubbing, No Cyanosis and No Edema
Skin: Warm, Dry and IV Access / Catheter Site
Neuro: Awake, Alert and Oriented
Psych: Calm
[2024-11-29 07:25] LABS: Hematocrit 34.5 % (39.0-52.0); Hemoglobin 11.9 g/dL (13.0-18.0); Mean Corp Hgb Conc. 34.5 g/dL (33.0-37.0); Mean Corpuscular Hgb 30.9 pg (27.0-31.0); Mean Corpuscular Volume 89.6 fL (80.0-94.0); Mean Platelet Volume 10.8 fL (7.4-10.4); Platelet Count 194 10^3/uL (130-400); Red Blood Cell Count 3.85 10^6/uL (4.70-6.10); Red Cell Dist. Width 13.6 % (11.5-14.5)
[2024-11-29 07:30] LABS: ALT (SGPT) 44 U/L (0-50); AST (SGOT) 63 U/L (17-59); Albumin 3.4 g/dl (3.5-5.0); Alkaline Phosphatase 93 U/L (38-126); Blood Urea Nitrogen 12 mg/dl (9-20); Calcium 8.8 mg/dl (8.4-10.2); Carbon Dioxide 27 mmol/L (22-30); Chloride 110 mmol/L (98-107); Estimated Creatinine Clearance 87 ml/min; Glucose 101 mg/dl (70-99); Potassium 3.5 mmol/L (3.5-5.1); Sodium 145 mmol/L (135-145); Total Bilirubin 0.8 mg/dl (0.2-1.3); Total Protein 5.7 g/dl (6.3-8.2); eGFR > 60.00
[2024-11-29 08:12] LABS: % Basophils 0.3 % (0-2); % Eosinophils 3.5 % (0-6); % Lymphocytes 40.1 % (20.5-51.1); % Neutrophils 44.1 % (42.2-75.2); Absolute Eosinophils 0.1 10^3/uL (0-0.7); Absolute Lymphocytes 1.6 10^3/uL (1.2-3.4); Absolute Monocytes 0.5 10^3/uL (0.1-0.6); Absolute Neutrophils 1.8 10^3/uL (1.4-6.5); Nucleated Red Blood Cells % 0 % (-)
[2024-11-29] MEDS: DESENEX/MITRAZOL/ZEASORB 1 APPLIC TOPICAL ×2 (09:27→20:32)
[2024-11-29] MEDS: HEPARIN 5000 UNITS SC ×2 (09:27→20:31)
[2024-11-29] MEDS: OCUVITE SOFTGEL 1 CAP PO (09:28)
[2024-11-29] MEDS: PROSCAR 5 MG PO (09:28)
[2024-11-29] MEDS: SINEMET 25-100 3 TABLET PO ×3 (09:28→22:25)
[2024-11-29] MEDS: FOLVITE 1 MG PO (09:29)
[2024-11-29] MEDS: NAMENDA 10 MG PO (09:30)
[2024-11-29] MEDS: VITAMIN B1 100 MG PO ×2 (09:30→20:31)
--- NOTE | 2024-11-29 10:50 | CM ---
Addendum entered by Marielena Hoffman 11/29/24 11:06:
Grazyna called & stated has a bed at [facility] tomorrow
tt hospitalist - covid test to be ordered
requested a 10:30 transport
PLAN: [facility] 11/30
Report #: [phone]
Fax #: [phone]
transportation forms on chart, facility requested a 10:30 transport
Original Note:
Spoke with Grazyna at [facility]
Met with patient and
Grazyna checking bed availability & will get back to CM on bed
IMM explained & signed. In chart
Will need COVID test prior to SNF
IMM explained & signed. In chart
PLAN: [facility], Pending bed availability
transportation forms on chart
[2024-11-29 11:43] LABS: COVID-19 Antigen Negative (Negative)
[2024-11-29 15:19] VITALS: BP 147/72
[2024-11-29] MEDS: ARICEPT 10 MG PO (22:25)
[2024-11-29 23:05] VITALS: BP 156/89
[2024-11-30 06:24] LABS: % Basophils 0.5 % (0-2); % Eosinophils 4.8 % (0-6); % Immature Granulocytes 0.3 % (0-0.5); % Lymphocytes 30.9 % (20.5-51.1); % Monocytes 11.6 % (1.7-9.3); % Neutrophils 51.9 % (42.2-75.2); Absolute Eosinophils 0.2 10^3/uL (0-0.7); Absolute Lymphocytes 1.2 10^3/uL (1.2-3.4); Absolute Monocytes 0.5 10^3/uL (0.1-0.6); Absolute Neutrophils 2.1 10^3/uL (1.4-6.5); Hematocrit 35.5 % (39.0-52.0); Hemoglobin 12.2 g/dL (13.0-18.0); Mean Corp Hgb Conc. 34.4 g/dL (33.0-37.0); Mean Corpuscular Hgb 31.2 pg (27.0-31.0); Mean Corpuscular Volume 90.8 fL (80.0-94.0); Mean Platelet Volume 10.8 fL (7.4-10.4); Nucleated Red Blood Cells % 0 % (-); Platelet Count 208 10^3/uL (130-400); Red Blood Cell Count 3.91 10^6/uL (4.70-6.10); Red Cell Dist. Width 13.6 % (11.5-14.5)
[2024-11-30 07:00] VITALS: BP 160/85
[2024-11-30 07:41] LABS: ALT (SGPT) 24 U/L (0-50); AST (SGOT) 67 U/L (17-59); Albumin 3.3 g/dl (3.5-5.0); Alkaline Phosphatase 92 U/L (38-126); Blood Urea Nitrogen 12 mg/dl (9-20); Calcium 9.1 mg/dl (8.4-10.2); Carbon Dioxide 29 mmol/L (22-30); Chloride 107 mmol/L (98-107); Estimated Creatinine Clearance 87 ml/min; Glucose 104 mg/dl (70-99); Potassium 3.5 mmol/L (3.5-5.1); Sodium 144 mmol/L (135-145); Total Bilirubin 0.8 mg/dl (0.2-1.3); Total Protein 5.7 g/dl (6.3-8.2); eGFR > 60.00
[2024-11-30] MEDS: DESENEX/MITRAZOL/ZEASORB 1 APPLIC TOPICAL (08:05)
[2024-11-30] MEDS: OCUVITE SOFTGEL 1 CAP PO (08:06)
[2024-11-30] MEDS: HEPARIN 5000 UNITS SC (08:06)
[2024-11-30] MEDS: NAMENDA 10 MG PO (08:06)
[2024-11-30] MEDS: PROSCAR 5 MG PO (08:06)
[2024-11-30] MEDS: VITAMIN B1 100 MG PO (08:06)
[2024-11-30] MEDS: SINEMET 25-100 3 TABLET PO (08:06)
[2024-11-30] MEDS: FOLVITE 1 MG PO (08:06)
--- NOTE | 2024-11-30 08:47 | CM ---
Spoke to Grazyna at [facility]
patient COVID negative
IMM signed yesterday in chart
PLAN: [facility] 11/30
Report #: [phone]
Fax #: [phone]
transportation forms on chart, facility requested a 10:30 transport
--- NOTE | 2024-11-30 08:57 | W.PN.HOSP.TC ---
Today's Communication/Plan
-
Stable for D/c to [facility], transport set for 10:30AM.
Assessment / Plan
Assessment / Plan
84 year old man presenting with complaints of AMS, vomiting and diarrhea
#Sepsis, likely secondary to viral gastroenteritis (norovirus)
- On admission hypotensive, febrile, leukocytosis, tachypneic, altered mental status from baseline
- given fluid bolus w/ sepsis dosing, not on pressors
- Norovirus Positive, C Diff. negative
- Blood cx taken, NGx48 hours
- Viral source, stopping Abx
- will observe rest of stool studies and Blood cultures and re-initiate abx if indicated
- c/w IVF
- Diarrhea resolved
- Cleared for [facility]
#Infectious Gastroenteritis secondary to Norovirus (resolved)
- Diarrhea/n/v resolved
- c/w IVF and supportive care measures
- Advanced to regular diet, tolerating well
#ISELA,likely pre-renal (resolved)
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
- d/c'd IVF
#Non Anion Gap Metabolic Acidosis (resolved)
- likely secondary to pre-renal ISELA
- c/t monitor CMP
- d/c'd IVF
#Toxic Metabolic Encephalopathy (resolved)
- Patient remains awake, alert, oriented x3
#Alcohol Use Disorder
- no clinical signs of withdrawal at this time, no DTs
- c/w Thiamine/Folate supplementation
- CIWA protocol, has not needed ativan
#Parkinson's Disease - c/w Sinemet
#Dementia c/w donepezil, memantine
#HLD - c/w statin
Regular diet
DVT PPx - heparin SC
Code Status - Full Code
Anticipated Discharge: Today
Subjective/Interval History
-
Date of Service: November 30, 2024
Feeling well this morning. No acute complaints. No overnight events.
Objective Data
-
Labs:
Laboratory Results
11/30/24
05:55
WBC 4.0 L
Hgb 12.2 L
Hct 35.5 L
Plt Count 208
Sodium 144
Potassium 3.5
Chloride 107
Carbon Dioxide 29
BUN 12
Creatinine 0.7
Glucose 104 H
Calcium 9.1
Total Bilirubin 0.8
AST 67 H
ALT 24
Alkaline Phosphatase 92
Vital Signs:
Vital Signs
Temp Pulse Resp BP Pulse Ox
97.7 F 63 18 160/85 96
11/30/24 07:00 11/30/24 07:00 11/30/24 07:00 11/30/24 07:00 11/30/24 07:00
I&O
11/29/24 11/30/24 12/01/24
06:59 06:59 06:59
Intake Total 840 / 840 1740 / 1740
Output Total 400 / 400 100 / 100
Balance 440 / 440 1640 / 1640
Review of Systems
-
Unable to obtain full review of systems at this time due to: Dementia
History Source: Patient
Constitutional: Reports No Symptoms
EENT: Reports No Symptoms Reported
Respiratory: Reports No Symptoms
Cardiac: Reports No Symptoms
Abdomen/GI: Reports No Symptoms
Genitourinary: Reports No Symptoms
Musculoskeletal: Reports No Symptoms
Physical Exam
-
General: Well Developed, Well Nourished, No Apparent Distress and Comfortable
HEENT: Normocephalic, Atraumatic, Moist Mucous Membranes, [place] Conjunctivae, PERRLA, Nose Appears Normal and Ears Appear Normal
Respiratory: Clear to Auscultation; Negative Wheezes, Rales or Rhonchi
Cardiac: Regular Rhythm and S1/S2; Negative Murmur or Rub
GI: Soft, Nontender, Nondistended and Normal Bowel Sounds
Genito-urinary: No Costovertebral Tender
Musculoskeletal: No Clubbing, No Cyanosis and No Edema
Skin: Warm, Dry and IV Access / Catheter Site
Neuro: Awake, Alert and Oriented
Psych: Calm
[2024-11-30 10:34] VITALS: BP 154/86
--- NOTE | 2024-11-30 17:53 | W.DCSUMMARY ---
Discharge Summary
Discharge Data
Date of Admission: 11/23/24
Date of Discharge: 11/30/24
Total time spent discharging patient (in min): >30min
-
Pending Results: No
Hospital Course
Discharging Physician : Dr. Miguel Youngblood, Dr. Osiel Klein
Disposition : [facility]
Primary care physician : Unknown
Principal Discharge diagnosis : Viral Sepsis, Viral Gastroenteritis, ISELA, Toxic Metabolic Encephalopathy
Chronic Discharge diagnosis : Alcohol Use Disorder, Parkinson's Disease, Dementia, Hyperlipidemia
Hospital Course :
84 year old man presenting with complaints of AMS, vomiting and diarrhea
#Sepsis, likely secondary to viral gastroenteritis (norovirus)
- On admission the patient was hypotensive, febrile, leukocytosis, tachypneic, and had altered mental status from baseline
- he was given fluid bolus w/ sepsis dosing. he did not require pressors
- Stool sudies came back Norovirus Positive, C Diff. negative
- Blood cx were taken which showed no growth after 48 hours
- Viral source was identified above and so empiric Cefepime/Zosyn were stopped after 24hours
- He was maintained on IVF until he was able to tolerate PO
- Was initially having persistent watery diarrhea requiring fecal management system. Diarrhea resolved after 48 hours and his bowel movements became formed and regular.
- Physical Therapy/Occupational therapy were consulted and he was deemed in need of skilled rehab
- He was medically cleared for discharge to [facility]
#Infectious Gastroenteritis secondary to Norovirus
- Diarrhea/n/v resolved as above
- he was maintained on IVF and supportive care measures while NPO
- He was advanced to regular diet and tolerated it well
#ISELA, likely pre-renal
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
- Creatinine decreased to 0.7 w/ IVF administration
- IVF were discontinued as above
#Non Anion Gap Metabolic Acidosis
- likely secondary to pre-renal ISELA
- He was monitored with regular CMPs.
- Improved with IVF
#Toxic Metabolic Encephalopathy
- Was confused on arrival
- With fluid resuscitation and supportive medication the patient's mental status improved rapidly within 24 hours and he remained lucid and oriented throughout his hospital stay.
#Alcohol Use Disorder
- Reported history on admission of nightly alcohol use
- no clinical signs of withdrawal on admission or during his stay, no DTs or history of DTs
- He was given Thiamine and Folate supplementation
- He was monitored with CIWA protocol; he did not need Ativan
#Parkinson's Disease - he was continued on Sinemet
#Dementia - he was continued on donepezil, memantine
#Hyperlipidemia - he was continued on his atorvastatin
Important imaging findings :
CT Head W/o Iv Contrast: No acute intracranial abnormality noted.
CR Chest Portable - 1 View: No acute cardiopulmonary abnormality.
CT Abd/pel (oral only)-DH Only:
Examination overall limited by multiple factors, as detailed above.
Tiny nonobstructing right renal calculus.
No intestinal obstruction or free air. Fluid-filled loops of nondilated small bowel, nonspecific, cannot exclude enteritis. Rectal tube noted.
Likely coronary artery calcifications.
Procedure findings :
None.
Discharge Plan
-
Patient Disposition: Fpc/SNF
Discharge Diagnosis/Procedures: Viral Sepsis, Gastroenteritis, ISELA
Condition: Good
Diet: Regular
Activity: With assistance and As tolerated
Driving Restrictions: As prior to admission
Bathing Restrictions: None
Referrals:
UNKNOWN - PT DOES,NOT KNOW [Family Provider] -
Prescriptions:
Continued
pyridoxine (vitamin B6) 100 mg Tablet
100 mg PO DAILY
ascorbic acid (vitamin C) [Vitamin C] 1,000 mg Tablet
1,000 mg PO DAILY
atorvastatin 20 mg Tablet
20 mg PO DAILY
finasteride 5 mg Tablet
5 mg PO DAILY
PreserVision AREDS-2 250-90-40-1 mg Capsule
1 tab PO BID
donepezil 10 mg Tablet
10 mg PO HS
carbidopa-levodopa 25-100 mg Tablet
3 tab PO TID
therapeutic multivitamin Tablet
1 tab PO DAILY
cyanocobalamin (vitamin B-12) 500 mcg Tablet
1,000 mcg PO DAILY
folic acid 1 mg Tablet
1 mg PO DAILY
Fish Oil 120-180 mg Capsule
2 cap PO DAILY
memantine 10 mg Tablet
10 mg PO DAILY
cholecalciferol (vitamin D3) [Vitamin D3] 25 mcg (1,000 unit) Tablet
25 mcg PO DAILY
Discharge Orders:
Discharge Patient (As Directed); Ordered 11/30/24
Ordered By: Miguel Youngblood
Discharge Date and Time
Discharge Date/Time: 11/30/24 10:59
Print Language: CZECH
== END 2024-11-30 10:59 | DRG 871 ==
LOC: 3 WEST ACU 21:26
PROVIDERS: Nurse Practitioner; Physician Assistant Medical; ADMITTING PHYSICIAN Internal Medicine; ATTENDING PHYSICIAN Hospitalist; EMERGENCY PHYSICIAN Emergency Medicine
DX: A41.89 Other specified sepsis (principal); G92.8 Other toxic encephalopathy; A08.11 Acute gastroenteropathy due to Norwalk agent; N17.9 Acute kidney failure, unspecified; E87.20 Acidosis, unspecified; B97.89 Other viral agents as the cause of diseases classified elsewhere; R65.20 Severe sepsis without septic shock; G20.A1 Parkinson's disease without dyskinesia, without mention of fluctuations; G30.9 Alzheimer's disease, unspecified; F02.80 Dementia in other diseases classified elsewhere, unspecified severity, without behavioral disturbance, psychotic disturbance, mood disturbance, and anxiety; E78.5 Hyperlipidemia, unspecified; F10.10 Alcohol abuse, uncomplicated; Z95.0 Presence of cardiac pacemaker; N40.0 Benign prostatic hyperplasia without lower urinary tract symptoms; Z96.643 Presence of artificial hip joint, bilateral; Z96.651 Presence of right artificial knee joint; I45.9 Conduction disorder, unspecified; I25.10 Atherosclerotic heart disease of native coronary artery without angina pectoris; Z11.52 Encounter for screening for COVID-19
CPT/HCPCS: 70450; 71045; 74176; 80053; 80202; 81003; 81015; 82962; 83605; 83690; 83735; 83880; 85025; 85027; 87040; 87045; 87046; 87086; 87324; 87427; 87449; 87502; 87798; 87811; 93005; 94640; 96361; 96374; 96375; 97163; 97167; 99285

== ENCOUNTER → 2025-03-02 10:42 | Outpatient (REF) | payer MEDICARE, OTHER, SELFPAY | LOC: RAD 10:42 | DX: G30.1 Alzheimer's disease with late onset (principal); Z91.81 History of falling | CPT/HCPCS: 70450 ==